=== PATIENT | male | born 1980 | race Caucasian/White ===

== ENCOUNTER 2017-06-21 00:25 | Inpatient (IN) | payer OTHER ==
[~2017-06-21] VITALS: Ht 172.7 cm; Wt 60.7 kg
[2017-06-21] VITALS (7 sets, daily range): BP systolic 123–135; BP diastolic 71–85; PULSE 86–108; TEMP 36.7–37.6; O2SAT 91–95; Ht 172.7 cm; Wt 60.7 kg
[~2017-06-21 00:25] MED LIST: AZITTAB PO; [UNRECOGNIZED DRUG - CODE] PO
[2017-06-21] MEDS ORDERED: ALBUT/IPRATROP 3MG/0.5MG NEB 3 ML VIAL INH STA ×2 (00:36→01:33)
[2017-06-21] MEDS ORDERED: SODIUM CHLORIDE 0.9% 1000ML 1,000 ML IV STA ×3 (00:36→04:15)
[2017-06-21] MEDS ORDERED: SODIUM CHLORIDE 0.9% 500ML 500 ML IV STA (00:36)
[2017-06-21] MEDS ORDERED: ALBUT/IPRATROP 3MG/0.5MG NEB 3 ML VIAL ONE (00:37)
[2017-06-21] MEDS ORDERED: DEXAMETHASONE SOD INJ 10 MG/ML VIAL IV ONE (00:45)
[2017-06-21 01:05] LABS: HEMATOCRIT 37.1 % (42-52); MEAN CELL VOLUME 86.5 fL (80-100); MEAN CORPUSCULAR HEMOGLOBIN 29.8 pg (25-34); MEAN CORPUSCULAR HGB CONC 34.5 g/dl (32-36); MEAN PLATELET VOLUME 8.7 fL (7.4-10.4); PLATELET COUNT 655 K/uL (130-400); RED BLOOD COUNT 4.29 M/uL (4.7-6.1); WHITE BLOOD COUNT 19.64 K/uL (4.8-10.8)
[2017-06-21] MEDS ORDERED: ONDANSETRON INJ 2 MG/ML 2 ML VIAL IV STA (01:33)
[2017-06-21 01:37] LABS: BASO ABS # 0.18 K/uL (0-0.2); BASOPHIL % 0.9 % (0-2); COMPLETE YES; EOSINOPHIL % 2.6 %; LYMPH ABS # 2.73 K/uL (1.2-3.4); LYMPHOCYTE % 13.9 %; META ABS # 0.18 K/uL (0-0); METAMYELOCYTE % 0.9 %; NEUTROPHILS % 75.6 %
[2017-06-21] MEDS ORDERED: OPTIRAY 320 IV PRN (01:45)
[2017-06-21] MEDS ORDERED: MoRPHine SULFATE 4 MG/ML 1 ML CARP\\VIAL IV STA (01:52)
[2017-06-21] MEDS ORDERED: CEFTRIAXONE SOD INJ 1 GM ADDVIAL IV STA (01:59)
[2017-06-21] MEDS ORDERED: FLUO20CA35 PO (02:06)
[2017-06-21 02:43] LABS: ALT/SGPT 164 U/L (12-78); AST/SGOT 128 U/L (15-37); BLOOD UREA NITROGEN 15 mg/dl (7-18); BUN/CREATININE RATIO 15.4 (10-20); CALCIUM 9.1 mg/dl (8.5-10.1); CARBON DIOXIDE 28 mmol/L (21-32); CHLORIDE 101 mmol/L (98-107); GLUCOSE 114 mg/dl (70-99); MAGNESIUM 2.2 mg/dl (1.8-2.4); POTASSIUM 3.8 mmol/L (3.5-5.1); SODIUM 135 mmol/L (136-145)
[2017-06-21 02:48] LABS: ALKALINE PHOSPHATASE 207 U/L (45-117)
[2017-06-21 02:58] LABS: LYME DISEASE AB IGG NEG (NEG); LYME DISEASE AB IGM NEG (NEG)
[2017-06-21 03:32] LABS: PARTIAL THROMBOPLASTIN RATIO 1.4; PROTHROMBIN TIME (PATIENT) 11.2 SECONDS (9.0-12.0)
[2017-06-21] MEDS ORDERED: KETOROLAC TROMETHAMINE 30 MG/ML VIAL IV STA (04:15)
[2017-06-21] MEDS ORDERED: CLINDAMYCIN IV 900 MG in DEXTROSE 5% 100ML 100 ML IV ONE (04:15)
[2017-06-21] MEDS ORDERED: AZITHROMYCIN 250 MG TAB PO STA (04:15)
[2017-06-21] MEDS ORDERED: MoRPHine SULFATE 2 MG/ML CARP IV PRN (04:30)
[2017-06-21] MEDS ORDERED: ONDANSETRON INJ 2 MG/ML 2 ML VIAL IV PRN (04:30)
[2017-06-21] MEDS ORDERED: ALUMINUM/MAGNESIUM/SIMETH (MAALOX MAX) 30 ML UDC PO PRN (04:30)
[2017-06-21] MEDS ORDERED: ZOLPIDEM TARTRATE 5 MG TAB PO PRN (04:30)
[2017-06-21] MEDS ORDERED: MAGNESIUM HYDROXIDE SUSP 30 ML UDC PO PRN (04:30)
[2017-06-21] MEDS ORDERED: POLYETHYLENE (MIRALAX) 17 GM PACK PO PRN (04:30)
[2017-06-21] MEDS ORDERED: ACETAMINOPHEN 325 MG TAB PO PRN (04:30)
--- NOTE | 2017-06-21 04:44 | History and Physical ---
History & Physical Date & Time of Service: Jun 21, 2017 at 04:37 Chief Complaint: Rib Pain-Happened At Work Primary Care Physician: Steve Hernandez M.D. History of Present Illness Source: patient 37 y/o M with history of depression and OCD only. The pt reports having a flu- like illness with cough and congestion as early as one week ago. He felt that he had returned to his normal state of health prior to returning to work today. At work he developed acute onset of pleuritic R sided CP in addition to progressive SOB and a productive cough. He could not confirm a fever. Denies N /V, diarrhea or dysuria. A CTA obtained in the ER revealed R upper and lower lobe consolidations with foci of cavitation - abscess could not be ruled out. Initial labs reveal leukocytosis and elevated LFTs. The pt travelled to [place] in February of 2017. 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 Smoking Status: Never Smoker Allergies Coded Allergies: No Known Allergies (Unverified , 06/25/08) Home Medications Scheduled Fluoxetine (Prozac), 20 MG PO DAILY Review of Systems Constitutional: No fever, No chills, No sweats Eyes: No worsening of vision ENT: No hearing loss, No unusual epistaxis, No nasal symptoms Respiratory: + cough, + sputum, + shortness of breath, + dyspnea on exertion, + dyspnea at rest Cardiovascular: + chest pain (Pleuritic - R sided) Abdomen: No pain, No nausea, No vomiting Musculoskeletal: No joint pain Genitourinary - Male: No hematuria, No dysuria Neurologic: No memory loss, No paralysis, No weakness Psychiatric: No depression symptoms Endocrine: No fatigue Hematologic / Lymphatic: No abnormal bleeding/bruising Integumentary: No rash Physical Exam Vital Signs Date Time Temp Pulse Resp B/P (MAP) Pulse Ox O2 Delivery O2 Flow Rate FiO2 06/21/17 04:01 91 22 138/96 93 Room Air 06/21/17 03:31 90 27 93 Room Air 06/21/17 03:00 85 21 127/75 95 Room Air 06/21/17 02:31 100 24 119/65 94 Room Air 06/21/17 02:01 100 27 95 Room Air 06/21/17 01:31 96 18 90 Room Air 06/21/17 01:30 97 24 135/72 91 Room Air 06/21/17 01:10 94 06/21/17 00:40 94 Room Air 06/21/17 00:40 94 Room Air 06/21/17 00:27 37.0 89 28 116/70 93 Room Air General Appearance: WD/WN, no apparent distress Head: normocephalic Eyes: normal inspection ENT: normal ENT inspection, hearing grossly normal, pharynx normal Neck: supple, no JVD Respiratory/Chest: + pertinent finding (Crackles present throughout R lung chou) Cardiovascular: regular rate, rhythm, no edema, no gallop Abdomen/GI: normal bowel sounds, non tender, soft Back: normal inspection, no CVA tenderness, no muscle spasm, normal range of motion Extremities/Musculoskelatal: normal inspection, no calf tenderness, normal capillary refill, no pedal edema, normal range of motion 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, no motor/sensory deficits, alert, normal mood/affect, normal reflexes, oriented x 3 Skin: normal color, warm/dry, no rash Diagnostics Laboratory Results Results Past 24 Hours Test 06/21/17 00:50 06/21/17 01:45 06/21/17 02:41 Range/Units White Blood Count 19.64 4.8-10.8 K/uL Red Blood Count 4.29 4.7-6.1 M/uL Hemoglobin 12.8 14.0-18.0 g/dL Hematocrit 37.1 42-52 % Mean Corpuscular Volume 86.5 80-100 fL Mean Corpuscular Hemoglobin 29.8 25-34 pg Mean Corpuscular Hemoglobin Concent 34.5 32-36 g/dl Platelet Count 655 130-400 K/uL Mean Platelet Volume 8.7 7.4-10.4 fL RDW Standard Deviation 42.4 36.4-46.3 fL RDW Coefficient of Variation 13.4 11.5-14.5 % Neutrophils % (Manual) 75.6 % Lymphocytes % (Manual) 13.9 % Monocytes % (Manual) 6.1 % Eosinophils % (Manual) 2.6 % Basophils % (Manual) 0.9 0-2 % Metamyelocytes % 0.9 % Neutrophils # (Manual) 14.85 1.4-6.5 K/uL Total Absolute Neutrophils 14.85 1.4-6.5 K/uL Lymphocytes # (Manual) 2.73 1.2-3.4 K/uL Total Absolute Lymphocytes 2.73 1.2-3.4 K/uL Monocytes # (Manual) 1.20 0.11-0.59 K/uL Eosinophils # (Manual) 0.51 0-0.5 K/uL Basophils # (Manual) 0.18 0-0.2 K/uL Metamyelocytes # 0.18 0-0 K/uL Red Blood Cell Morphology Unremarkable Prothrombin Time 11.2 9.0-12.0 SECONDS Prothromb Time International Ratio 1.0 0.9-1.1 Activated Partial Thromboplast Time 35.2 21.0-31.0 SECONDS Partial Thromboplastin Ratio 1.4 Sodium Level 135 136-145 mmol/L Potassium Level 3.8 3.5-5.1 mmol/L Chloride Level 101 98-107 mmol/L Carbon Dioxide Level 28 21-32 mmol/L Anion Gap 6.0 3-11 mmol/L Blood Urea Nitrogen 15 7-18 mg/dl Creatinine 1.00 0.60-1.40 mg/dl Est Creatinine Clear Calc Drug Dose 113.8 ml/min Estimated GFR () 110.2 Estimated GFR (Non- 95.1 BUN/Creatinine Ratio 15.4 10-20 Random Glucose 114 70-99 mg/dl Calcium Level 9.1 8.5-10.1 mg/dl Magnesium Level 2.2 1.8-2.4 mg/dl Total Bilirubin 0.5 0.2-1 mg/dl Direct Bilirubin 0.3 0-0.2 mg/dl Aspartate Amino Transf (AST/SGOT) 128 15-37 U/L Alanine Aminotransferase (ALT/SGPT) 164 12-78 U/L Alkaline Phosphatase 207 45-117 U/L Troponin I < 0.015 0-0.045 ng/ml Total Protein 8.0 6.4-8.2 gm/dl Albumin 2.8 3.4-5.0 gm/dl Lipase 84 73-393 U/L Lyme Disease IgG Antibody NEG NEG Lyme Disease IgM Antibody NEG NEG Hepatitis B Surface Antigen NEG NEG Hepatitis C Antibody NEG NEG Bedside Lactic Acid Venous 0.55 0.90-1.70 mmol/L Microbiology Results 06/21/17 Blood Culture, Received Pending 06/21/17 Blood Culture, Received Pending Diagnostic Radiology CTA: R upper and lower lobe consolidation with foci of cavitation - possibly abscess - multiple enlarged mediastinal LNs Impression Assessment and Plan 37 y/o M with history of depression and OCD only. The pt reports having a flu- like illness with cough and congestion as early as one week ago. He felt that he had returned to his normal state of health prior to returning to work today. At work he developed acute onset of pleuritic R sided CP in addition to progressive SOB and a productive cough. He could not confirm a fever. Denies N /V, diarrhea or dysuria. A CTA obtained in the ER revealed R upper and lower lobe consolidations with foci of cavitation - abscess could not be ruled out. Initial labs reveal leukocytosis and elevated LFTs. 1) Pneumonia with cavitations and possibly abscess. Differential is broad - he admits to excessive alcohol intake and occasionally passing out at home after drinking. He may then be prone to aspiration and anaerobic infection or Klebsiella. 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 The pt was sick one week earlier with a flu-like illness and reported improvement before becoming acutely ill at work today. A post-viral pneumonia should be considered. Lastly, LFTs are elevated and the ratio does not suggest that this is alcohol- related. Legionella is a possibility although this would normally appear as a b /l pneumonia. The pt received Ceftriaxone and Zithro in the ER - we will change this to Clindamycin and consult ID and Pulmonary. Sputum culture, AFB, blood culture, Legionella urine, rapid flu are all currently pending. He will be placed in negative pressure isolation. 2) Depression/anxiety, OCD - pt will continue fluoxetine. 3) Excessive alcohol intake - he has minimized intake over the past 2 weeks and has not had any alcohol for a few days. Withdrawal is unlikely. Positive reinforcement was provided. 4) LFTs abnormal - no current related symptoms - may be due to acute infection - will trend LFs - hep panel - may need dedicated imaging if there is an upward trend. Full code, Heparin prophylaxis Total time for this admit including review of labs, meds, EKG, imaging - discussion with pt and ER attending - 45 min Level of Care Telemetry Resuscitation Status FULL RESUSCITATION VTE Prophylaxis VTE Risk Assessment Done? Y/N: Yes Risk Level: Very Low Given or contraindicated: Unfractionated heparin SQ
[2017-06-21 05:11] LABS: URINE APPEARANCE CLEAR (CLEAR); URINE BILIRUBIN NEG (NEG); URINE COLOR YELLOW; URINE NITRITE NEG (NEG); URINE PH 6.5 (4.5-7.5); URINE SPECIFIC GRAVITY 1.027 (1.000-1.030); UROBILINOGEN NEG (NEG); ZZUR CULT IF INDIC CLEAN CATCH NO
[2017-06-21 05:24] LABS: MANUAL MICROSCOPIC REQUIRED? NO; REVIEW REQ? NO
--- NOTE | 2017-06-21 05:25 | EMERGENCY ROOM VISIT NOTE ---
History First contact with patient: 00:31 Chief Complaint: RIB PAIN Stated Complaint: RIB PAIN-HAPPENED AT WORK History of Present Illness The patient is a 37 year old male who presents to the Emergency Room with complaints of cough, congestion with objective fever and chills for the past few weeks. Patient states tonight at work symptoms got worse and developed right-sided chest pain. No injury to the area. Pain currently 5 out of 10 worse with coughing and better with rest. Patient denies abdominal pain, diaphoresis, nausea, vomiting, diarrhea, back pain, leg pain or swelling, recent travel within the past 3 months. No family history of heart disease or blood clots. Patient has had bronchitis before. Patient also states he was bitten by a tick a few months ago and is concerned he has Lyme's disease. He has been fatigued. Review of Systems See HPI for pertinent positives & negatives. A total of 10 systems reviewed and were otherwise negative. Past Medical/Surgical History Medical Problems: (1) Lung abscess (2) Multifocal pneumonia Anxiety, OCD Social History Smoking Status: Never Smoker Smokeless Tobacco Use: No Alcohol Use: occasionally Drug Use: none Occupation Status: employed Current/Historical Medications Scheduled Fluoxetine (Prozac), 20 MG PO DAILY Physical Exam Vital Signs Date Time Temp Pulse Resp B/P (MAP) Pulse Ox O2 Delivery O2 Flow Rate FiO2 06/21/17 05:12 99 06/21/17 04:01 91 22 138/96 93 Room Air 06/21/17 03:31 90 27 93 Room Air 06/21/17 03:00 85 21 127/75 95 Room Air 06/21/17 02:31 100 24 119/65 94 Room Air 06/21/17 02:01 100 27 95 Room Air 06/21/17 01:31 96 18 90 Room Air 06/21/17 01:30 97 24 135/72 91 Room Air 06/21/17 01:10 94 06/21/17 00:40 94 Room Air 06/21/17 00:40 94 Room Air 06/21/17 00:27 37.0 89 28 116/70 93 Room Air Physical Exam VITALS: Vitals are noted on the nurse's note and reviewed by myself. Vital signs stable. GENERAL: Pleasant male unable to speak in full sentences SKIN: The skin was without rashes, erythema, edema, or bruising. There is no tenting of the skin. Capillary reflex less than 2 seconds. HEAD: Normocephalic atraumatic. EARS: External auditory canals clear, tympanic membranes pearly casiano without erythema or effusion bilaterally. EYES: Pupils equal round and reactive to light and accommodation. Conjunctivae without injection, sclerae without icterus. Extraocular movements intact. NOSE: Patent, turbinates without inflammation or discharge. No sinus tenderness. MOUTH: Mucous membranes moist. Pharynx without erythema or exudate. Uvula midline. Airway patent. Tongue does not deviate. NECK: Supple without nuchal rigidity. No lymphadenopathy. No thyromegaly. Cervical spine is nontender. No JVD. HEART: Regular rate and rhythm without murmurs gallops or rubs. LUNGS: Mild diffuse and expiratory wheezes, diminished breath sounds in the bases no dullness to percussion. No retractions or accessory muscle use. ABDOMEN: Positive bowel sounds x 4. Normal tympanic percussion. Soft, nontender, without masses or organomegaly. Bennett sign negative. No guarding or rebound tenderness. No CVA tenderness MUSCULOSKELETAL: No muscle atrophy, erythema, or edema noted. NEURO: Patient was alert and oriented to person place and time. Normal sensation to light and sharp touch. No focal neurological deficits. Medical Decision & Procedures Laboratory Results 06/21/17 00:50 Red Blood Count 4.29, Mean Corpuscular Volume 86.5, Mean Corpuscular Hemoglobin 29.8, Mean Corpuscular Hemoglobin Concent 34.5, Mean Platelet Volume 8.7 06/21/17 01:45 Test 06/21/17 00:50 06/21/17 01:45 06/21/17 02:41 06/21/17 04:54 White Blood Count 19.64 K/uL (4.8-10.8) Red Blood Count 4.29 M/uL (4.7-6.1) Hemoglobin 12.8 g/dL (14.0-18.0) Hematocrit 37.1 % (42-52) Mean Corpuscular Volume 86.5 fL (80-100) Mean Corpuscular Hemoglobin 29.8 pg (25-34) Mean Corpuscular Hemoglobin Concent 34.5 g/dl (32-36) Platelet Count 655 K/uL (130-400) Mean Platelet Volume 8.7 fL (7.4-10.4) RDW Standard Deviation 42.4 fL (36.4-46.3) RDW Coefficient of Variation 13.4 % (11.5-14.5) Neutrophils % (Manual) 75.6 % Lymphocytes % (Manual) 13.9 % Monocytes % (Manual) 6.1 % Eosinophils % (Manual) 2.6 % Basophils % (Manual) 0.9 % (0-2) Metamyelocytes % 0.9 % Neutrophils # (Manual) 14.85 K/uL (1.4-6.5) Total Absolute Neutrophils 14.85 K/uL (1.4-6.5) Lymphocytes # (Manual) 2.73 K/uL (1.2-3.4) Total Absolute Lymphocytes 2.73 K/uL (1.2-3.4) Monocytes # (Manual) 1.20 K/uL (0.11-0.59) Eosinophils # (Manual) 0.51 K/uL (0-0.5) Basophils # (Manual) 0.18 K/uL (0-0.2) Metamyelocytes # 0.18 K/uL (0-0) Red Blood Cell Morphology Unremarkable Prothrombin Time 11.2 SECONDS (9.0-12.0) Prothromb Time International Ratio 1.0 (0.9-1.1) Activated Partial Thromboplast Time 35.2 SECONDS (21.0-31.0) Partial Thromboplastin Ratio 1.4 Anion Gap 6.0 mmol/L (3-11) Est Creatinine Clear Calc Drug Dose 113.8 ml/min Estimated GFR () 110.2 Estimated GFR (Non- 95.1 BUN/Creatinine Ratio 15.4 (10-20) Calcium Level 9.1 mg/dl (8.5-10.1) Magnesium Level 2.2 mg/dl (1.8-2.4) Total Bilirubin 0.5 mg/dl (0.2-1) Direct Bilirubin 0.3 mg/dl (0-0.2) Aspartate Amino Transf (AST/SGOT) 128 U/L (15-37) Alanine Aminotransferase (ALT/SGPT) 164 U/L (12-78) Alkaline Phosphatase 207 U/L (45-117) Troponin I < 0.015 ng/ml (0-0.045) Total Protein 8.0 gm/dl (6.4-8.2) Albumin 2.8 gm/dl (3.4-5.0) Lipase 84 U/L (73-393) Lyme Disease IgG Antibody NEG (NEG) Lyme Disease IgM Antibody NEG (NEG) Hepatitis B Surface Antigen NEG (NEG) Hepatitis C Antibody NEG (NEG) Bedside Lactic Acid Venous 0.55 mmol/L (0.90-1.70) Test 06/21/17 05:15 Medications Administered Medications (Trade) Dose Ordered Sig/Lanny Route Start Time Stop Time Status Last Admin Dose Admin Albuterol/ Ipratropium (Duoneb) 3 ml NOW STAT INH 06/21/17 00:36 06/21/17 00:38 DC 06/21/17 00:40 3 ML Dexamethasone Sodium Phosphate (Decadron Inj) 10 mg NOW ONCE IV 06/21/17 00:45 06/21/17 00:46 DC 06/21/17 00:59 10 MG Sodium Chloride 500 ml @ 999 mls/hr Q31M STAT IV 06/21/17 00:36 06/21/17 01:06 DC 06/21/17 00:36 999 MLS/HR Sodium Chloride 1,000 ml @ 125 mls/hr Q8H STAT IV 06/21/17 00:36 06/21/17 08:35 06/21/17 01:01 125 MLS/HR Albuterol/ Ipratropium (Duoneb) 3 ml NOW STAT INH 06/21/17 01:33 06/21/17 01:34 DC 06/21/17 01:33 3 ML Ondansetron HCl (Zofran Inj) 4 mg NOW STAT IV 06/21/17 01:33 06/21/17 01:34 DC 06/21/17 01:43 4 MG Morphine Sulfate (MoRPHine SULFATE INJ) 4 mg NOW STAT IV 06/21/17 01:52 06/21/17 01:53 DC 06/21/17 01:57 4 MG Ceftriaxone Sodium (Rocephin Inj) 1 gm NOW STAT IV 06/21/17 01:59 06/21/17 02:00 DC 06/21/17 02:35 1 GM ED Course Prior records/ancillary studies reviewed. Triage Nursing notes reviewed. The patient's history was concerning for breathing problems with chest pain. Differential diagnosis: Etiologies such as bronchitis, reactive airway, cardiac ischemia, aortic dissection, pulmonary embolism, pneumonia, pneumothorax, musculoskeletal, infections, pericarditis, myocarditis, esophageal rupture, gastrointestinal, as well as others were entertained. Physical examination: As above. ER treatment provided: Nebulizer, steroids On reassessment the patient felt better. Diagnostic interpretation by me: The electrocardiogram was negative for pathologic change. Normal sinus, normal intervals, no acute ST-T wave changes. Impression normal sinus rhythm interpreted by myself The labs revealed leukocytosis, elevated LFTs. Negative hepatitis panel. Legionnaire's pending. Acid-fast pending. Sputum culture pending. Blood cultures pending. neg Lactic Acid Imaging studies: Chest x-ray poor inspiration, concerns of possible right lower lobe pneumonia per my interpretation CTA concerning for right upper and lower lobes consolidations with foci of cavitation - abscess could not be ruled out. Consultation: A consultation was placed with the hospitalist, Dr. Alvarado. The case was discussed and diagnostics were reviewed. The patient was evaluated in the ER for further treatment. Exam and history seem consistent with ammonia with concerns of possible legionnaires, Klebsiella or tuberculosis. Immediately after reviewing the CT I I informed my nursing direct care supervisor Kate, and notified the hospital direct care supervisor with my possible concerns. Precautions were taken for possible TB and other infectious diseases. Patient denies any risk factors for TB. No hemoptysis. He did state after the fact when he got results that he has been drinking heavily. Patient went to [place] in February. No other travels. No travel to third will country's. No IV drug abuse. Patient was placed in isolation. He was medicated as above. He will be evaluated by medicine for admission. Patient felt much better after being medicated as above. Normal EKG. Negative troponin. He was well-appearing.By the evaluation outlined above emergent etiologies such as cardiac ischemia, aortic dissection, pulmonary embolism, pneumothorax, pericarditis, myocarditis, gastrointestinal, as well as others were deemed relatively unlikely. The pt informed about the findings as listed above. All questions were answered and pleased with the treatment. Case reviewed by attending Medical Decision as above Medication Reconcilliation Current Medication List: was personally reviewed by me Blood Pressure Screening Patient's blood pressure: Normal blood pressure Impression Primary Impression: Multifocal pneumonia Additional Impression: Anemia Departure Information Referrals No Doctor, Assigned (PCP) Patient Instructions My [facility] Problem Qualifiers
--- NOTE | 2017-06-21 06:02 | DIAGNOSTIC IMAGING REPORT ---
CHEST ONE VIEW PORTABLE CLINICAL HISTORY: 37 years-old Male presenting with CHEST PAIN, posterior right rib pain. TECHNIQUE: Portable semiupright AP view of the chest was obtained. COMPARISON: None. FINDINGS: Cardiomediastinal silhouette normal. Low lung volumes with hypoventilatory changes. Osseous structures normal. Upper abdomen normal. IMPRESSION: 1. Low lung volumes with hypoventilatory changes. 2. If there is clinical concern for a right rib fracture, dedicated radiographs are suggested due to limited image quality on the portable radiograph of the chest. Electronically signed by: Morgan Morocho M.D. 06/21/2017 6:00 AM Dictated Date/Time: 06/21/2017 5:59 AM
--- NOTE | 2017-06-21 06:40 | DIAGNOSTIC IMAGING REPORT ---
(CHEST FOR PE) ANGIO WITH CT DOSE: 770.81 mGy.cm HISTORY: 37 years-old Male presents with acute chest pain and shortness of breath. Initial exam. TECHNIQUE: Multiple CTA images of the chest were obtained after the intravenous administration of 95 ml Optiray 320. Coronal and sagittal MIPS were obtained from the axial data set and were submitted for review. A dose lowering technique was utilized adhering to the principles of ALARA. COMPARISON: Chest radiograph of same day. FINDINGS: CTA: Heart is normal in size. Bovine aortic arch is noted with image great vessels patent. No aortic dissection or aneurysm. The pulmonary arterial tree is well opacified to the level of the proximal subsegmental branches. Evaluation is mildly limited secondary to respiratory motion. No pulmonary emboli identified. CT CHEST: No dominant thyroid nodule identified. Mildly enlarged right hilar lymph nodes are seen measuring up to 1.1 cm in short axis. Subcarinal lymph nodes are seen measuring up to 1.1 cm in short axis. Enlarged paratracheal lymph nodes are seen with right paratracheal lymph node measuring up to 1.5 cm in transverse dimension. There is a small right pleural effusion. No pneumothorax is identified. Dependent groundglass opacities of the left lung suggests atelectasis. There are multifocal groundglass and consolidative opacities throughout the right lung involving the right upper and lower lobes. Centrally cavitary opacity of the superior segment right lower lobe is seen, 3.4 x 5.8 cm with connecting or separate centrally cavitary seen just inferiorly, also within the superior segment right lower lobe, 4.3 x 5.4 cm. Together these two cavitations measure up to 7.9 cm in craniocaudal dimension. Bronchial wall thickening is noted within the right upper and lower lobes with bronchovascular distribution nodular and consolidative opacities. Imaged upper abdominal structures are within normal limits. The bones appear intact. IMPRESSION: 1. Multifocal alveolar consolidations within the right upper and lower lobes are present with small right pleural effusion and associated moderate bronchial wall thickening suggesting infectious bronchopneumonia. Additionally, there are two large possibly connecting centrally cavitary consolidations involving the superior segment right lower lobe measuring up to 5.8 cm. Primary differential consideration would be cavitary pneumonia with probable abscess development. Additional differential considerations would include tuberculosis or granulomatosis with polyangiitis among other etiologies. Close follow-up is needed. 2. Mediastinal and hilar adenopathy is likely reactive. 3. No acute aortic pathology or evidence of pulmonary thromboembolic disease. The above report was generated using voice recognition software. It may contain grammatical, syntax or spelling errors. Electronically signed by: Mor Chavarria M.D. 06/21/2017 6:39 AM Dictated Date/Time: 06/21/2017 6:23 AM
[2017-06-21 08:54] LABS: INFLUENZA A PCR Neg for Influ A (NEG); INFLUENZA B PCR Neg for Influ B (NEG)
[2017-06-21] MEDS: FLUOXETINE HCL 20 MG CAP PO SCH (08:55)
[2017-06-21] MEDS: HEPARIN SOD 5000 UNIT/0.5 ML CARP SQ SCH ×2 (08:57→16:00)
--- NOTE | 2017-06-21 10:48 | Pulmonary Consultation ---
History General Date of Service: Jun 21, 2017. Stated Complaint: Lung Abscess, Multifocal Pneumonia HPI The patient is a 37 year old male who presents to [facility] with complaints of Lung Abscess, Multifocal Pneumonia. The patient's primary care provider is Steve Hernandez M.D.. Mr. Warner is a 37 year old male who presents with acute right sided pleurtic chest pain that started a few hours prior to coming to ER visit. He complains of sharp right sided chest pain associated with deep inspiration. It is not reproducible. He states that over the last several weeks he felt like he had a "flu-like" illness, that was associated with subjective fever, chills, nasal congestion and cough. He states that he has had sweats since childhood during periods of anxiety, this often on forehead and chest. He denies hemoptysis, weight loss, change in appetite. He denies any decreased exercise tolerance or dyspnea on exertion prior to this event. He denies any sick contacts on any known exposures to anyone with tuberculosis. He has never been incarcerated or been in the . He he recently traveled to [place] in February 2017. He uses cocaine, intranasally on occasion. He also states that he had been drink heavily up until one month ago till the point of "passing out." He denies any other drug exposure. Last use was about one month. Denies any IVDA. He has history of GERD, denies any any sinusitis. He has had joint pains of knees and ankles over the last week. He denies any family history of any rheumatological disorders or malignancy. He denies any trauma to the area. He denies any prior episodes of lung infections. VS upon arrival to ER were Temperature 37, P 89, RR 28, BP 116/70, P 93, 93% on room air. Laboratory data significant for WBC 19, Hgb 12.8, Plt 655, with N 75% and L 13.9%. Sodium 135, BUN 15, Cr 1.0, DB 0.3, AST 128, P164, AP 207, Trop < 0.015, TP 8.0, Albumin 2.8. CXR showed low lung volumes with hypoventilatory changes. CT chest showed right upper and lower lobe opacification with a large 5.8 cm mass with cavitation. There is also a small pleural effusion noted. In the ED, he received DuoNeb inhaler x2, Dexamethasone 10 mg x1 IV, NaCl bolus , morphine, ceftriaxone and azithromycin. Blood cultures, sputum cultures, AFB sputum cultures, legionella Ag sent. He was admitted for pneumonia. Historian: patient Onset: just prior to arrival Severity: moderate Complaint Status: persistent Quality of Pain: aching, sharp Method of Injury: unknown Modifying Factors: immobilization Review of Systems Constitutional: reports: chills, fever Eyes: reports: as stated in HPI ENT: reports: as stated in HPI Cardiovascular: reports: as stated in HPI Respiratory: reports: as stated in HPI Gastrointestinal: reports: as stated in HPI Genitourinary - Male: reports: as stated in HPI Musculoskeletal: reports: as stated in HPI Integumentary: reports: as stated in HPI Neurologic: reports: as stated in HPI Psychiatric: reports: as stated in HPI Endocrine: as stated in HPI Hematologic / Lymphatic: as stated in HPI Allergic / Immunologic: as stated in HPI All Other Symptoms All Other Systems: Reviewed and Negative Past Medical History Past Medical History: Anxiety OCD Past Surgical History: no surgical history Family History Denies any family history Social History 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 He denies any tobacco use, marijuana use. He is an occasional cocaine user--last use was about one month ago He states that he was a heavy beer drinker of about 12 beers a day. He states that he has not been drinking, for the last month. He is currently not sexually active. Last sexual encounter was about 1 year ago. He is heterosexual. He lives with a roommate. Hx Tobacco Use In Past Year?: No Smoking Status: Never Smoker Alcohol: history of alcohol abuse Drug Use: cocaine Marital status: single Housing status: lives with roommate Occupational Status: employed Allergies Coded Allergies: No Known Allergies (Unverified , 06/25/08) Current Medications Reported Home Medications Medications Dose Route/Sig Max Daily Dose Days Date Category Prozac (Fluoxetine HCl) 20 Mg Cap 20 Mg PO DAILY 06/21/17 Reported Physical Physical Exam Vital Signs: Date Time Temp Pulse Resp B/P (MAP) Pulse Ox O2 Delivery O2 Flow Rate FiO2 06/21/17 09:21 36.8 91 22 135/85 95 Room Air 06/21/17 08:20 83 20 138/68 96 06/21/17 06:36 93 06/21/17 06:21 93 25 89 06/21/17 06:17 140/80 06/21/17 06:06 85 26 94 06/21/17 05:51 86 23 92 06/21/17 05:50 36.6 83 23 110/89 92 Room Air 06/21/17 05:49 110/89 06/21/17 05:36 80 26 94 06/21/17 05:21 84 21 91 06/21/17 05:12 99 06/21/17 05:06 89 14 94 06/21/17 04:51 86 16 91 06/21/17 04:49 129/101 06/21/17 04:21 92 22 94 06/21/17 04:06 100 29 94 06/21/17 04:01 91 22 138/96 93 Room Air 06/21/17 03:31 90 27 93 Room Air 06/21/17 03:00 85 21 127/75 95 Room Air 06/21/17 02:31 100 24 119/65 94 Room Air 06/21/17 02:01 100 27 95 Room Air 06/21/17 01:31 96 18 90 Room Air 06/21/17 01:30 97 24 135/72 91 Room Air 06/21/17 01:10 94 06/21/17 00:40 94 Room Air 06/21/17 00:40 94 Room Air 06/21/17 00:27 37.0 89 28 116/70 93 Room Air General Appearance: WD/WN, NO APPARENT DISTRESS, obese, other (Sweating profusely) Head: NORMOCEPHALIC, ATRAUMATIC Eyes: PERRLA, NO DISCHARGE, EOMI, SCLERAE NORMAL, CONJUNCTIVAE NORMAL ENT: NORMAL MOUTH EXAM, other (malampatti IV) Neck: NO TENDERNESS, TRACHEA MIDLINE, NO STRIDOR, SUPPLE, other (short thick neck) Respiratory: BREATH SOUNDS NORMAL, CLEAR TO AUSCULTATION Cardiovasular: REGULAR RATE/RHYTHM, NORMAL S1S2, NORMAL PERIPHERAL PULSES Abdomen: NON TENDER, NORMAL BOWEL SOUNDS Genitourinary - Male: EXTERNAL GENITALIA NORMAL Back: NORMAL INSPECTION Upper Extremities: NO EDEMA Lower Extremities: NO EDEMA Pulses: dorsalis pedis (R) (2+), dorsalis pedis (L) (2+) Neuro: ALERT, ORIENTED x 3, NORMAL MOTOR EXAM, NORMAL SENSATION, NORMAL CEREBELLAR EXAM, NORMAL SPEECH, NORMAL GAIT, NORMAL MEMORY Diagnostics Labs Results Past 24 Hours Test 06/21/17 00:50 06/21/17 01:45 06/21/17 02:41 06/21/17 04:54 Range/Units White Blood Count 19.64 4.8-10.8 K/uL Red Blood Count 4.29 4.7-6.1 M/uL Hemoglobin 12.8 14.0-18.0 g/dL Hematocrit 37.1 42-52 % Mean Corpuscular Volume 86.5 80-100 fL Mean Corpuscular Hemoglobin 29.8 25-34 pg Mean Corpuscular Hemoglobin Concent 34.5 32-36 g/dl Platelet Count 655 130-400 K/uL Mean Platelet Volume 8.7 7.4-10.4 fL RDW Standard Deviation 42.4 36.4-46.3 fL RDW Coefficient of Variation 13.4 11.5-14.5 % Neutrophils % (Manual) 75.6 % Lymphocytes % (Manual) 13.9 % Monocytes % (Manual) 6.1 % Eosinophils % (Manual) 2.6 % Basophils % (Manual) 0.9 0-2 % Metamyelocytes % 0.9 % Neutrophils # (Manual) 14.85 1.4-6.5 K/uL Total Absolute Neutrophils 14.85 1.4-6.5 K/uL Lymphocytes # (Manual) 2.73 1.2-3.4 K/uL Total Absolute Lymphocytes 2.73 1.2-3.4 K/uL Monocytes # (Manual) 1.20 0.11-0.59 K/uL Eosinophils # (Manual) 0.51 0-0.5 K/uL Basophils # (Manual) 0.18 0-0.2 K/uL Metamyelocytes # 0.18 0-0 K/uL Red Blood Cell Morphology Unremarkable Prothrombin Time 11.2 9.0-12.0 SECONDS Prothromb Time International Ratio 1.0 0.9-1.1 Activated Partial Thromboplast Time 35.2 21.0-31.0 SECONDS Partial Thromboplastin Ratio 1.4 Sodium Level 135 136-145 mmol/L Potassium Level 3.8 3.5-5.1 mmol/L Chloride Level 101 98-107 mmol/L Carbon Dioxide Level 28 21-32 mmol/L Anion Gap 6.0 3-11 mmol/L Blood Urea Nitrogen 15 7-18 mg/dl Creatinine 1.00 0.60-1.40 mg/dl Est Creatinine Clear Calc Drug Dose 113.8 ml/min Estimated GFR () 110.2 Estimated GFR (Non- 95.1 BUN/Creatinine Ratio 15.4 10-20 Random Glucose 114 70-99 mg/dl Calcium Level 9.1 8.5-10.1 mg/dl Magnesium Level 2.2 1.8-2.4 mg/dl Total Bilirubin 0.5 0.2-1 mg/dl Direct Bilirubin 0.3 0-0.2 mg/dl Aspartate Amino Transf (AST/SGOT) 128 15-37 U/L Alanine Aminotransferase (ALT/SGPT) 164 12-78 U/L Alkaline Phosphatase 207 45-117 U/L Troponin I < 0.015 0-0.045 ng/ml Total Protein 8.0 6.4-8.2 gm/dl Albumin 2.8 3.4-5.0 gm/dl Lipase 84 73-393 U/L Lyme Disease IgG Antibody NEG NEG Lyme Disease IgM Antibody NEG NEG Hepatitis B Surface Antigen NEG NEG Hepatitis C Antibody NEG NEG Bedside Lactic Acid Venous 0.55 0.90-1.70 mmol/L Urine Color YELLOW Urine Appearance CLEAR CLEAR Urine pH 6.5 4.5-7.5 Urine Specific [place] 1.027 1.000-1.030 Urine Protein NEG NEG Urine Glucose (UA) NEG NEG Urine Ketones NEG NEG Urine Occult Blood NEG NEG Urine Nitrite NEG NEG Urine Bilirubin NEG NEG Urine Urobilinogen NEG NEG Urine Leukocyte Esterase NEG NEG Test 06/21/17 05:15 06/21/17 06:20 Range/Units Influenza Type A (RT-PCR) Neg for Influ A NEG Influenza Type A Antigen Neg for Influ A NEG Influenza Type B Antigen Neg for Influ B NEG Influenza Type B (RT-PCR) Neg for Influ B NEG Microbiology Results 06/21/17 Blood Culture, Received Pending 06/21/17 Blood Culture, Received Pending 06/21/17 Acid Fast Stain, Received Pending 06/21/17 Mycobacterial Culture, Received Pending 06/21/17 Gram Stain - Final, Resulted 06/21/17 Sputum Culture, Resulted Pending Diagnostic Radiology CT chest 06/21/2017 IMPRESSION: 1. Multifocal alveolar consolidations within the right upper and lower lobes are present with small right pleural effusion and associated moderate bronchial wall thickening suggesting infectious bronchopneumonia. Additionally, there are two large possibly connecting centrally cavitary consolidations involving the superior segment right lower lobe measuring up to 5.8 cm. Primary differential consideration would be cavitary pneumonia with probable abscess development. Additional differential considerations would include tuberculosis or granulomatosis with polyangiitis among other etiologies. Close follow-up is needed. 2. Mediastinal and hilar adenopathy is likely reactive. 3. No acute aortic pathology or evidence of pulmonary thromboembolic disease. EKG Normal sinus rhythm at 78 bpm Impression Assessment and Plan Pneumonia with cavitations Pleurisy Transaminitis From patient history this is most likely a necrotizing pneumonia, however other etiologies should be ruled out, such has fungal and mycobaterium etiologies (ie TB). He has history of heavy alcohol use recently, which puts aspiration high on the differential. He denies any withdrawal symptoms or seizures. He also has history of cocaine use. Autoimmune diseases like Manjeet's granulomatosis or RA should be considered and ruled out. He denies any sinusitis. Also malignancy, such bronchogenic CA is possibility, but less likely. Continue with airborne precautions Send sputum cx and AFB sputum x3 to rule out pulmonary TB. Use 3% NS for sputum induction if needed. He should have blood cx and MO to rule out septic emboli Send HIV, serum or urine drug screen. Send ANCA, RA, ESR, CRP. Will also seen cryptococcal and cocci/blastomycosis Ab Continue with broad spectrum antibiotics to cover for MRSA and anaerobes. He is currently on clindamycin. Provide adequate pain control and incentive spirometry If work up is negative, a bronchoscopy with BAL and biopsy is warranted Supplement oxygen if needed to maintain SaO2 >92%. I appreciate the consult
[2017-06-21 11:52] LABS: RHEUMATOID FACTOR < 10.0 U/mL (0-15)
[2017-06-21 12:30] LABS: BENZODIAZEPINE, URINE NEG (NEG); COCAINE,URINE NEG (NEG); PHENCYCLIDINE, URINE NEG (NEG)
[2017-06-21] MEDS ORDERED: CLINDAMYCIN IV 600 MG in DEXTROSE 5% 50ML 50 ML IV SCH (14:00)
[2017-06-21] MEDS: ALBUT/IPRATROP 3MG/0.5MG NEB 3 ML VIAL INH PRN (15:06)
[2017-06-21] MEDS ORDERED: NURSING VERBAL MED ORDER ONE (16:15)
[2017-06-21] MEDS: KETOROLAC TROMETHAMINE 30 MG/ML VIAL IV. PRN ×2 (16:16→22:27)
--- NOTE | 2017-06-21 18:18 | Family Medicine Progress Note ---
Progress Note Date of Service Jun 21, 2017. Subjective Pt evaluation today including: conversation w/ patient, physical exam, chart review, conversation w/ senior analytic consultant, review of inpatient medication list Pain: moderate Voiding: no voiding problems Patient seen at the bedside. Was admitted overnight for pneumonia Continues to have right sided pleuritic chest pain with deep inspiration Has a cough with yellow sputum Denies any shortness of breath, fevers or chills Constitutional: + fatigue, No fever, No chills, No sweats Respiratory: + cough, + sputum, No wheezing, No shortness of breath Cardiovascular: + chest pain, No edema, No palpitations Abdomen: No pain, No nausea, No vomiting, No diarrhea, No constipation Musculoskeletal: + muscle pain, No joint pain Medications Current Inpatient Medications Medications (Trade) Dose Ordered Sig/Lanny Route Start Time Stop Time Status Last Admin Dose Admin Ioversol (Optiray 320) 125 ml UD PRN IV 06/21/17 01:45 06/25/17 01:44 Albuterol/ Ipratropium (Duoneb) 3 ml Q6H PRN INH 06/21/17 04:30 07/21/17 04:29 06/21/17 15:06 3 ML Fluoxetine HCl (Prozac Cap) 20 mg DAILY PO 06/21/17 09:00 07/21/17 08:59 06/21/17 08:55 20 MG Heparin Sodium (Porcine) (Heparin Sq 5000 Unit/0.5ml) 5,000 unit Q8H SQ 06/21/17 08:00 07/21/17 07:59 06/21/17 08:57 5,000 UNIT Acetaminophen (Tylenol Tab) 650 mg Q4H PRN PO 06/21/17 04:30 07/21/17 04:29 Al Hydrox/Mg Hydrox/Simethicone (Maalox Max Susp) 15 ml Q4H PRN PO 06/21/17 04:30 07/21/17 04:29 Magnesium Hydroxide (Milk Of Magnesia Susp) 30 ml Q12H PRN PO 06/21/17 04:30 07/21/17 04:29 Zolpidem Tartrate (Ambien Tab) 5 mg HSZ PRN PO 06/21/17 04:30 07/21/17 04:29 Ondansetron HCl (Zofran Inj) 4 mg Q6H PRN IV 06/21/17 04:30 07/21/17 04:29 Morphine Sulfate (MoRPHine SULFATE INJ) 2 mg Q30M PRN IV 06/21/17 04:30 07/05/17 04:29 06/21/17 12:07 2 MG Polyethylene (Miralax Powder Packet) 17 gm DAILY PRN PO 06/21/17 04:30 07/21/17 04:29 Ketorolac Tromethamine (Toradol Inj) 30 mg Q6H PRN IV. 06/21/17 16:15 06/26/17 16:14 06/21/17 16:16 30 MG Azithromycin 500 mg/Dextrose 255 ml @ 170 mls/hr DAILY STAT IV 06/21/17 17:57 06/21/17 19:26 UNV Piperacillin Sod/ Tazobactam Sod 4.5 gm/Dextrose 120 ml @ 200 mls/hr Q6H STAT IV 06/21/17 17:57 06/21/17 18:32 UNV Vancomycin HCl 1000 mg/Sodium Chloride 270 ml @ 125 mls/hr Q12 IV 06/21/17 21:00 06/28/17 20:59 UNV Objective Vital Signs Date Time Temp Pulse Resp B/P (MAP) Pulse Ox O2 Delivery O2 Flow Rate FiO2 06/21/17 16:17 37.6 108 22 128/71 (90) 06/21/17 16:00 92 Room Air 06/21/17 15:06 102 16 92 Room Air 06/21/17 12:00 92 Room Air 06/21/17 11:54 36.7 86 20 123/80 (94) 92 Room Air 06/21/17 09:21 36.8 91 22 135/85 95 Room Air 06/21/17 08:20 83 20 138/68 96 06/21/17 06:36 93 06/21/17 06:21 93 25 89 06/21/17 06:17 140/80 06/21/17 06:06 85 26 94 06/21/17 05:51 86 23 92 06/21/17 05:50 36.6 83 23 110/89 92 Room Air 06/21/17 05:49 110/89 06/21/17 05:36 80 26 94 06/21/17 05:21 84 21 91 06/21/17 05:12 99 06/21/17 05:06 89 14 94 06/21/17 04:51 86 16 91 06/21/17 04:49 129/101 06/21/17 04:21 92 22 94 06/21/17 04:06 100 29 94 06/21/17 04:01 91 22 138/96 93 Room Air 06/21/17 03:31 90 27 93 Room Air 06/21/17 03:00 85 21 127/75 95 Room Air 06/21/17 02:31 100 24 119/65 94 Room Air 06/21/17 02:01 100 27 95 Room Air 06/21/17 01:31 96 18 90 Room Air 06/21/17 01:30 97 24 135/72 91 Room Air 06/21/17 01:10 94 06/21/17 00:40 94 Room Air 06/21/17 00:40 94 Room Air 06/21/17 00:27 37.0 89 28 116/70 93 Room Air Physical Exam General Appearance: WD/WN, + mild distress Respiratory/Chest: lungs clear, no respiratory distress, no accessory muscle use, + decreased breath sounds (poor inspiratory effort due to pleuritic chest pain) Cardiovascular: regular rate, rhythm, no JVD, no murmur Abdomen: normal bowel sounds, non tender, soft Extremities: normal range of motion, non-tender, no calf tenderness, normal capillary refill Neurologic/Psychiatric: alert, normal mood/affect, oriented x 3 Skin: normal color, warm/dry, no rash Laboratory Results Results Past 24 Hours Test 06/21/17 00:50 06/21/17 01:45 06/21/17 02:41 06/21/17 04:54 Range/Units White Blood Count 19.64 4.8-10.8 K/uL Red Blood Count 4.29 4.7-6.1 M/uL Hemoglobin 12.8 14.0-18.0 g/dL Hematocrit 37.1 42-52 % Mean Corpuscular Volume 86.5 80-100 fL Mean Corpuscular Hemoglobin 29.8 25-34 pg Mean Corpuscular Hemoglobin Concent 34.5 32-36 g/dl Platelet Count 655 130-400 K/uL Mean Platelet Volume 8.7 7.4-10.4 fL RDW Standard Deviation 42.4 36.4-46.3 fL RDW Coefficient of Variation 13.4 11.5-14.5 % Neutrophils % (Manual) 75.6 % Lymphocytes % (Manual) 13.9 % Monocytes % (Manual) 6.1 % Eosinophils % (Manual) 2.6 % Basophils % (Manual) 0.9 0-2 % Metamyelocytes % 0.9 % Neutrophils # (Manual) 14.85 1.4-6.5 K/uL Total Absolute Neutrophils 14.85 1.4-6.5 K/uL Lymphocytes # (Manual) 2.73 1.2-3.4 K/uL Total Absolute Lymphocytes 2.73 1.2-3.4 K/uL Monocytes # (Manual) 1.20 0.11-0.59 K/uL Eosinophils # (Manual) 0.51 0-0.5 K/uL Basophils # (Manual) 0.18 0-0.2 K/uL Metamyelocytes # 0.18 0-0 K/uL Red Blood Cell Morphology Unremarkable Prothrombin Time 11.2 9.0-12.0 SECONDS Prothromb Time International Ratio 1.0 0.9-1.1 Activated Partial Thromboplast Time 35.2 21.0-31.0 SECONDS Partial Thromboplastin Ratio 1.4 Sodium Level 135 136-145 mmol/L Potassium Level 3.8 3.5-5.1 mmol/L Chloride Level 101 98-107 mmol/L Carbon Dioxide Level 28 21-32 mmol/L Anion Gap 6.0 3-11 mmol/L Blood Urea Nitrogen 15 7-18 mg/dl Creatinine 1.00 0.60-1.40 mg/dl Est Creatinine Clear Calc Drug Dose 113.8 ml/min Estimated GFR () 110.2 Estimated GFR (Non- 95.1 BUN/Creatinine Ratio 15.4 10-20 Random Glucose 114 70-99 mg/dl Calcium Level 9.1 8.5-10.1 mg/dl Magnesium Level 2.2 1.8-2.4 mg/dl Total Bilirubin 0.5 0.2-1 mg/dl Direct Bilirubin 0.3 0-0.2 mg/dl Aspartate Amino Transf (AST/SGOT) 128 15-37 U/L Alanine Aminotransferase (ALT/SGPT) 164 12-78 U/L Alkaline Phosphatase 207 45-117 U/L Troponin I < 0.015 0-0.045 ng/ml Total Protein 8.0 6.4-8.2 gm/dl Albumin 2.8 3.4-5.0 gm/dl Lipase 84 73-393 U/L Lyme Disease IgG Antibody NEG NEG Lyme Disease IgM Antibody NEG NEG Hepatitis B Surface Antigen NEG NEG Hepatitis C Antibody NEG NEG Bedside Lactic Acid Venous 0.55 0.90-1.70 mmol/L Urine Color YELLOW Urine Appearance CLEAR CLEAR Urine pH 6.5 4.5-7.5 Urine Specific [place] 1.027 1.000-1.030 Urine Protein NEG NEG Urine Glucose (UA) NEG NEG Urine Ketones NEG NEG Urine Occult Blood NEG NEG Urine Nitrite NEG NEG Urine Bilirubin NEG NEG Urine Urobilinogen NEG NEG Urine Leukocyte Esterase NEG NEG Test 06/21/17 05:15 06/21/17 06:20 06/21/17 10:55 06/21/17 10:56 Range/Units Influenza Type A (RT-PCR) Neg for Influ A NEG Influenza Type A Antigen Neg for Influ A NEG Influenza Type B Antigen Neg for Influ B NEG Influenza Type B (RT-PCR) Neg for Influ B NEG Urine Opiates Screen POS NEG Urine Methadone, Qualitative NEG NEG Urine Barbiturates NEG NEG Urine Phencyclidine (PCP) Level NEG NEG Ur Amphetamine/Methamphetamine NEG NEG MDMA (Ecstasy) Screen NEG NEG Urine Benzodiazepines Screen NEG NEG Urine Cocaine Metabolite NEG NEG Urine Marijuana (THC) NEG NEG Erythrocyte Sedimentation Rate 88 0-14 mm/hr C-Reactive Protein 33.80 0-0.29 mg/dl Rheumatoid Factor < 10.0 0-15 U/mL Test 06/21/17 11:30 06/21/17 16:19 Range/Units HIV (1&2) Ab and P24 Ag, 4th Gener NEG NEG Microbiology Results 06/21/17 Blood Culture, Received Pending 06/21/17 Blood Culture, Received Pending 06/21/17 Cryptococcal Antigen - Final, Complete 06/21/17 Acid Fast Stain, Received Pending 06/21/17 Mycobacterial Culture, Received Pending 06/21/17 Gram Stain - Final, Resulted 06/21/17 Sputum Culture, Resulted Pending Assessment and Plan 37 y/o M with history of depression and OCD presented with cough, congestion and general malaise found to have R upper and left lower lobe consolidations with foci of cavitation on CT. 1) Pneumonia with cavitations and possibly abscess. - Airborne precautions - Started on Vanc, Zosyn and Azithromycin ----> switched from clinda - Send sputum cx and sputum culture x3 to rule out TB - Send HIV, ANCA, DIAZ, ESR, CRP and cryptococcal and cocci/blastomycosis Ab - Sent for legionella antigen - Incentive spirometry - O2 sats to remain above 92%Continue with airborne precautions - Send blood culture 2) Depression/anxiety, OCD - pt will continue fluoxetine. 3) Excessive alcohol intake - he has minimized intake over the past 2 weeks and has not had any alcohol for a few days. - continue to monitor for withdrawal 4) LFTs abnormal - due to infection vs alcohol - will continue to trend 5) DVT prophylaxis - lovenox 40mg subq FULL CODE Continued [facility] stay due to: multiple IV medications needed Reviewed: Pt Seen/Exam by Me History Resident Physician Supervision Note: I interviewed and examined the patient. Discussed with Dr. Cano and agree with findings and plan as documented in the note. Any exceptions or clarifications are listed here: Pt with significant right sided pleuritic chest pain but improved now with toradol. Coughing up copious yellow-green sputum, no hemoptysis ever. Says he has had hyperhidrosis his whole life so his profuse sweating is normal for him. Very anxious about his condition currently. Not SOB but did require O2 earlier today when was splinting with CP. Vitals reviewed Anxious, profusely diaphoretic, pleasant, talkative RRR no mgr Lungs with decreased BS right lower and mid lung chou, no wheezes, decreased BS throughout, poor inspiratory effort Abd +BS soft NT ND, no definite HSM Ext no edema Skin: a few scattered pinpoint scabs on legs from previous excoriated bug bites 37 yo male with CAP vs necrotizing PNA with abscess etiology TB vs MRSA, Strep/ Staph, atypical, fungal, autoimmune, less lkely underlying malignancy. -Acute hypoxemic respiratory failure secondary to PNA -checking labs and sputum, AFB, HIV, atypicals as above Elevated LFTs--> check liver US but likely secondary to infection and sepsis -supplemental O2 prn -Toradol prn pleuritic pain, Flutter valve, nebs -Appreciate Pulm consult -Consider ID consult Documented By: Lucia Arceo
[2017-06-21] MEDS ORDERED: PIPERACILL/TAZOBAC CONSULT ACTIVE PRN (19:00)
[2017-06-21] MEDS ORDERED: VANCOMYCIN CONSULT ACTIVE PRN (19:00)
--- NOTE | 2017-06-21 19:23 | Pharmacy Progress Note ---
Pharmacy Abx Initial Consult Date of Service Jun 21, 2017. Pharmacy Dosing Scope Date of Consult: 06/21/17 Consultation requested by: Dr. Yessy Cano Pharmacy is consulted to initiate Vancomycin/Zosyn IV dosing therapy, order appropriate labs and adjust drug dose/frequency. Subjective The patient is a 37 year old male admitted on Jun 21, 2017 at 04:36. Objective Height (Feet): 5 Height (Inches): 8.00 Weight (Kilograms): 101.000 Vital Signs (Past 12Hrs) Vital Signs Past 12 Hours Date Time Temp Pulse Resp B/P (MAP) Pulse Ox O2 Delivery O2 Flow Rate FiO2 06/21/17 16:17 37.6 108 22 128/71 (90) 06/21/17 16:00 92 Room Air 06/21/17 15:06 102 16 92 Room Air 06/21/17 12:00 92 Room Air 06/21/17 11:54 36.7 86 20 123/80 (94) 92 Room Air 06/21/17 09:21 36.8 91 22 135/85 95 Room Air 06/21/17 08:20 83 20 138/68 96 Lab Results (24Hrs) Laboratory Tests (24 Hours) Test 06/21/17 00:50 06/21/17 10:56 White Blood Count 19.64 K/uL (4.8-10.8) H Red Blood Count 4.29 M/uL (4.7-6.1) L Hemoglobin 12.8 g/dL (14.0-18.0) L Hematocrit 37.1 % (42-52) L Mean Corpuscular Volume 86.5 fL (80-100) Mean Corpuscular Hemoglobin 29.8 pg (25-34) Mean Corpuscular Hemoglobin Concent 34.5 g/dl (32-36) Platelet Count 655 K/uL (130-400) H Mean Platelet Volume 8.7 fL (7.4-10.4) C-Reactive Protein 33.80 mg/dl (0-0.29) H Erythrocyte Sedimentation Rate 88 mm/hr (0-14) H Micro Results Cultures and serologies pending: Date/Time Source Procedure Growth Status 06/21/17 02:35 Blood Blood Culture Pending Received 06/21/17 02:25 Blood Blood Culture Pending Received 06/21/17 01:45 Blood Cryptococcal Antigen - Final Complete 06/21/17 04:54 Sputum Expectorated Sputum Acid Fast Stain Pending Received 06/21/17 04:54 Sputum Expectorated Sputum Mycobacterial Culture Pending Received 06/21/17 04:54 Sputum Expectorated Sputum Gram Stain - Final Resulted 06/21/17 04:54 Sputum Expectorated Sputum Sputum Culture Pending Resulted Assessment & Plan Assessment 37 year old male with multi-focal pneumonia/cavitation with lung abscess empirically starting IV Azithromycin, IV Zosyn and IV Vancomycin. Blood and sputum cultures pending. Plan Broad spectrum antibiotics for treatment of complicated pneumonia process Vancomycin IV * Loading dose: 2500 mg (25 mg/kg) * Maintenance dose: 1750 mg IV (17.5 mg/kg) every 10 hours * Goal trough level for pneumonia: 15 to 20 mcg/mL * Trough level ordered for Friday06/23/17 around the 1400 hours dose Piperacillin/tazobactam * 4.5 g bolus administered over 30 minutes, then 4.5 g IV extended infusion every 8 hours for CrCl greater than 20 mL/min OR every 12 hours for CrCl 20 mL/ min or less and dialysis. * Aggressive dosing selected due to critically ill status (complex pulmonary infection)/BMI 35. Pharmacy will continue to follow and will adjust dose/frequency as necessary. Thank you.
[2017-06-21] MEDS ORDERED: PIPERACILL/TAZOBAC IV 4.5 GM in DEXTROSE 5% 100ML IV ONE (20:00)
[2017-06-21] MEDS: AZITHROMYCIN IV 500 MG in DEXTROSE 5% 250ML 250 ML IV SCH (20:08)
[2017-06-21] MEDS ORDERED: VANCOMYCIN INJ 2,500 MG in SODIUM CHLORIDE 0.9% 500ML 500 ML IV ONE (21:00)
[2017-06-22] VITALS (15 sets, daily range): BP systolic 122–143; BP diastolic 71–86; PULSE 90–107; TEMP 36.5–37.2; O2SAT 85–96
[2017-06-22] MEDS: HEPARIN SOD 5000 UNIT/0.5 ML CARP SQ SCH (00:13)
[2017-06-22] MEDS: PIPERACILL/TAZOBAC IV 4.5 GM in DEXTROSE 5% 100ML 100 ML IV SCH ×3 (03:00→16:43)
[2017-06-22] MEDS: ALBUT/IPRATROP 3MG/0.5MG NEB 3 ML VIAL INH PRN (04:20)
[2017-06-22] MEDS: KETOROLAC TROMETHAMINE 30 MG/ML VIAL IV. PRN ×3 (04:55→17:20)
[2017-06-22 06:15] LABS: HEMATOCRIT 31.6 % (42-52); MEAN CELL VOLUME 86.1 fL (80-100); MEAN CORPUSCULAR HEMOGLOBIN 29.7 pg (25-34); MEAN CORPUSCULAR HGB CONC 34.5 g/dl (32-36); MEAN PLATELET VOLUME 8.6 fL (7.4-10.4); PLATELET COUNT 628 K/uL (130-400); RED BLOOD COUNT 3.67 M/uL (4.7-6.1)
[2017-06-22 06:26] LABS: BASO % 0.1 %; BASO ABS # 0.05 K/uL (0-0.2); COMPLETE YES; EOS % 0.1 %; IG% 2.5 %; LYMPH % 5.8 %; LYMPH ABS # 2.13 K/uL (1.2-3.4); MONO % 6.4 %; NEUT % 85.1 %
[2017-06-22 06:32] LABS: BUN/CREATININE RATIO 12.8 (10-20); CALCIUM 8.5 mg/dl (8.5-10.1); CREATININE 0.97 mg/dl (0.60-1.40); POTASSIUM 3.8 mmol/L (3.5-5.1)
[2017-06-22 06:35] LABS: ALB/GLOB RATIO 0.5 (0.9-2)
--- NOTE | 2017-06-22 06:57 | Progress Note ---
Progress Note Date of Service Jun 22, 2017. Progress Note ID Consult Dictated #[id number] A/P: 1. Cavitary PNA 2. Leukocytosis -Continue emperic abx, follow cultures, culture afb pending -will follow, thank you
[2017-06-22] MEDS: FLUOXETINE HCL 20 MG CAP PO SCH (07:41)
[2017-06-22] MEDS: ENOXAPARIN 40 MG/0.4 ML SYR SQ SCH (07:47)
[2017-06-22] MEDS: VANCOMYCIN INJ 1,750 MG in SODIUM CHLORIDE 0.9% 500ML 500 ML IV SCH ×2 (07:49→16:42)
[2017-06-22] MEDS: ALBUT/IPRATROP 3MG/0.5MG NEB 3 ML VIAL INH SCH ×3 (09:06→19:16)
--- NOTE | 2017-06-22 11:08 | Pulmonology Progress Note ---
Pulmonary Progress Note Date of Service Jun 22, 2017. Attending Subjective Patient seen and examined. He states he was up for 35 hours. He finally went to sleep early this morning. He states that he has been coughing somewhat and able to produce some clear colored sputum. He is still having profuse sweating. Pleuritic right sided chest has improved. Objective VS reviewed. Tm 37.2, BP 122/71--131/78, P 90-107, RR 16-22, P85-96% on 2-4L NC. Gen: AAOx3, NAD, speaking in full sentences without acute distress, appears somewhat anxious CVS: S1, S2, tachycardic Chest/Lungs: Good air entry b/l, crackles on right middle lower lobes, mildly tachypneic Abd: soft/NT/ND/BS+ Ext: no cyanosis, no clubbing, no edema Labs reviewed. WBC 19-->37 Hgb 12-->10.9 Plt 655-->628 Na 135-->131 AST 40 ALT 123 AP 182 CRP 33.8 Procalcitonin 2 HIV 06/21/2017--negative Cocci Ab--pending Influenza A and B negative Urine Legionella --pending Cryptococcal Ag--negative RF--negative CHAVEZ, ANCA--pending Blood cultures 06/21/2017--no growth to date Sputum culture 06/21/2017--pending Sputum AFB x3--pending Medications reviewed. Currently on Vancomycin, Zosyn and Azithromycin IV, DuoNeb , Lovenox and morphine prn for pain. Assessment & Plan Pneumonia with cavitations Leukocytosis Pleurisy Transaminitis From patient history this is most likely a necrotizing bacterial pneumonia, however other etiologies should be ruled out, such has fungal and mycobaterium etiologies (ie TB). He has history of heavy alcohol use recently, which puts aspiration high on the differential. Autoimmune diseases like Manjeet's granulomatosis or RA should be considered and ruled out. He denies any sinusitis. Also malignancy, such bronchogenic CA is possibility, but less likely. Continue with airborne precautions F/u sputum and AFB cultures Blood cultures are negative to date. Consider MO to rule out septic emboli HIV is negative, urine drug screen only positive for opiates, which he received in the the ER ANCA,CHAVEZ still pending. RA < 10. ESR, CRP are both elevated which is expected in an acute inflammatory response. Cryptoccocal Ab is negative. Cocci Ab is still pending. Continue with broad spectrum antibiotics to cover for MRSA and anaerobes. He was on clindamycin, now on vancomycin, zosyn and azithromycin. ID is on board and following Provide adequate pain control and incentive spirometry If work up is negative, a bronchoscopy with BAL and biopsy is warranted Supplement oxygen if needed to maintain SaO2 >92%. Dr. Mcginnis will take over the pulmonary service as of tomorrow and continue to follow. Data Medications: Current Inpatient Medications Medications (Trade) Dose Ordered Sig/Lanny Route Start Time Stop Time Status Last Admin Dose Admin Ioversol (Optiray 320) 125 ml UD PRN IV 06/21/17 01:45 06/25/17 01:44 Fluoxetine HCl (Prozac Cap) 20 mg DAILY PO 06/21/17 09:00 07/21/17 08:59 06/22/17 07:41 20 MG Acetaminophen (Tylenol Tab) 650 mg Q4H PRN PO 06/21/17 04:30 07/21/17 04:29 Al Hydrox/Mg Hydrox/Simethicone (Maalox Max Susp) 15 ml Q4H PRN PO 06/21/17 04:30 07/21/17 04:29 Magnesium Hydroxide (Milk Of Magnesia Susp) 30 ml Q12H PRN PO 06/21/17 04:30 07/21/17 04:29 Zolpidem Tartrate (Ambien Tab) 5 mg HSZ PRN PO 06/21/17 04:30 07/21/17 04:29 Ondansetron HCl (Zofran Inj) 4 mg Q6H PRN IV 06/21/17 04:30 07/21/17 04:29 Morphine Sulfate (MoRPHine SULFATE INJ) 2 mg Q30M PRN IV 06/21/17 04:30 07/05/17 04:29 06/21/17 12:07 2 MG Polyethylene (Miralax Powder Packet) 17 gm DAILY PRN PO 06/21/17 04:30 07/21/17 04:29 Ketorolac Tromethamine (Toradol Inj) 30 mg Q6H PRN IV. 06/21/17 16:15 06/26/17 16:14 06/22/17 04:55 30 MG Azithromycin 500 mg/Dextrose 255 ml @ 170 mls/hr DAILY@1830 IV 06/21/17 18:30 06/28/17 18:29 06/21/17 20:08 170 MLS/HR Piperacillin Sod/ Tazobactam Sod 4.5 gm/Dextrose 120 ml @ 30 mls/hr Q8H IV 06/22/17 02:00 06/28/17 17:59 06/22/17 10:09 30 MLS/HR Vancomycin HCl 1750 mg/Sodium Chloride 535 ml @ 200 mls/hr Q10H IV 06/22/17 08:00 06/28/17 20:59 06/22/17 07:49 200 MLS/HR Enoxaparin Sodium (Lovenox Inj) 40 mg QAM SQ 06/22/17 09:00 07/22/17 08:59 06/22/17 07:47 40 MG Piperacillin Sod/ Tazobactam Sod (Consult) 1 ea UD PRN N/A 06/21/17 19:00 06/28/17 18:59 Vancomycin HCl (Consult) 1 ea UD PRN N/A 06/21/17 19:00 06/28/17 18:59 Albuterol/ Ipratropium (Duoneb) 3 ml Q6R INH 06/22/17 09:00 07/22/17 08:59 06/22/17 09:06 3 ML Vital Signs: Date Time Temp Pulse Resp B/P (MAP) Pulse Ox O2 Delivery O2 Flow Rate FiO2 06/22/17 09:06 105 16 90 Room Air 06/22/17 08:05 91 Nasal Cannula 4.0 06/22/17 08:00 91 Nasal Cannula 4.0 06/22/17 07:57 36.9 94 22 125/72 (89) 85 Room Air 06/22/17 04:20 107 16 92 Room Air 06/22/17 04:00 Nasal Cannula 2.0 06/22/17 04:00 37.2 104 22 122/71 (88) 92 Room Air 06/22/17 00:00 37.1 90 20 131/78 (95) 96 Nasal Cannula 2.0 06/21/17 23:59 Nasal Cannula 2.0 06/21/17 20:00 Nasal Cannula 2.0 06/21/17 19:50 36.9 96 22 128/84 (99) 91 Nasal Cannula 2.0 06/21/17 16:17 37.6 108 22 128/71 (90) 06/21/17 16:00 92 Room Air 06/21/17 15:06 102 16 92 Room Air 06/21/17 12:00 92 Room Air 06/21/17 11:54 36.7 86 20 123/80 (94) 92 Room Air Laboratory Results: Last 24 Hours Test 06/21/17 10:55 06/21/17 10:56 06/21/17 11:30 06/21/17 16:19 Urine Opiates Screen POS Urine Methadone, Qualitative NEG Urine Barbiturates NEG Urine Phencyclidine (PCP) Level NEG Ur Amphetamine/Methamphetamine NEG MDMA (Ecstasy) Screen NEG Urine Benzodiazepines Screen NEG Urine Cocaine Metabolite NEG Urine Marijuana (THC) NEG Erythrocyte Sedimentation Rate 88 mm/hr C-Reactive Protein 33.80 mg/dl Rheumatoid Factor < 10.0 U/mL HIV (1&2) Ab and P24 Ag, 4th Gener NEG Test 06/22/17 05:15 White Blood Count 37.00 K/uL Red Blood Count 3.67 M/uL Hemoglobin 10.9 g/dL Hematocrit 31.6 % Mean Corpuscular Volume 86.1 fL Mean Corpuscular Hemoglobin 29.7 pg Mean Corpuscular Hemoglobin Concent 34.5 g/dl Platelet Count 628 K/uL Mean Platelet Volume 8.6 fL Neutrophils (%) (Auto) 85.1 % Lymphocytes (%) (Auto) 5.8 % Monocytes (%) (Auto) 6.4 % Eosinophils (%) (Auto) 0.1 % Basophils (%) (Auto) 0.1 % Neutrophils # (Auto) 31.50 K/uL Lymphocytes # (Auto) 2.13 K/uL Monocytes # (Auto) 2.35 K/uL Eosinophils # (Auto) 0.04 K/uL Basophils # (Auto) 0.05 K/uL RDW Standard Deviation 43.4 fL RDW Coefficient of Variation 13.6 % Immature Granulocyte % (Auto) 2.5 % Immature Granulocyte # (Auto) 0.93 K/uL Sodium Level 131 mmol/L Potassium Level 3.8 mmol/L Chloride Level 99 mmol/L Carbon Dioxide Level 24 mmol/L Anion Gap 8.0 mmol/L Blood Urea Nitrogen 12 mg/dl Creatinine 0.97 mg/dl Est Creatinine Clear Calc Drug Dose 119.1 ml/min Estimated GFR () 114.3 Estimated GFR (Non- 98.6 BUN/Creatinine Ratio 12.8 Random Glucose 126 mg/dl Calcium Level 8.5 mg/dl Total Bilirubin 0.6 mg/dl Aspartate Amino Transf (AST/SGOT) 40 U/L Alanine Aminotransferase (ALT/SGPT) 123 U/L Alkaline Phosphatase 182 U/L Total Protein 7.5 gm/dl Albumin 2.4 gm/dl Globulin 5.1 gm/dl Albumin/Globulin Ratio 0.5 Procalcitonin 2.02 ng/ml
[2017-06-22] MEDS ORDERED: NURSING VERBAL MED ORDER ONE (13:30)
--- NOTE | 2017-06-22 13:46 | ECHOCARDIOGRAM REPORT ---
*NOTICE TO RECEIVING REPUBLICAN AGENCY This information is strictly Confidential and protected under [place] law. [place] law prohibits you from making any further disclosure of this information unless further disclosure is expressly permitted by the written consent of the person to whom it pertains or is authorized by law. A general authorization for the release of medical or other information is not sufficient for this purpose. Hospital accepts no responsibility if the information is made available to any other person, INCLUDING THE PATIENT. Interpretation Summary * Name: ROSA ARROYO Study Date: 06/21/2017 12:16 PM BP: 135/85 mmHg * Patient Location: C.2T\S\S231\S\1 HR: 97 * : 1980 (M/d/yyyy) Gender: Male Height: 68 in * Age: 37 yrs Ethnicity: CA Weight: 222 lb * Ordering Physician: Lupe Foley * Referring Physician: Self, Referred * Performed By: Ethel Parrish RCS * * Reason For Study: ENDOCARDITIS * BSA: 2.1 m2 * -- Conclusions -- * Left ventricular systolic function is normal. * No regional wall motion abnormalities noted. * Ejection Fraction = 65-70%. * A patent foramen ovale is suspected. Procedure Details * A complete two-dimensional transthoracic echocardiogram was performed (2D, M-mode, Doppler and color flow Doppler). * A saline contrast injection was performed to assess for cardiac shunting. * The injection was performed through an intravenous line in the right arm. * The attending nurse who injected the saline contrast was JOANNE MONIQUE, RN. * A total of 30 cc of agitated saline was given. Left Ventricle * The left ventricle is normal in size. * There is normal left ventricular wall thickness. * Left ventricular systolic function is normal. * Ejection Fraction = 65-70%. * No regional wall motion abnormalities noted. Right Ventricle * The right ventricle is grossly normal size. * The right ventricular systolic function is normal as assessed by tricuspid annular plane systolic excursion (TAPSE) (normal >1.5 cm). Atria * The left atrium is mildly dilated. * Right atrial size is normal. * A patent foramen ovale is suspected. * Injection of contrast documented an interatrial shunt. Mitral Valve * The mitral valve is normal in structure and function. * There is no mitral valve stenosis. * Significant mitral regurgitation is absent. Tricuspid Valve * The tricuspid valve anatomy is normal. * There is no tricuspid stenosis. * Significant tricuspid regurgitation is absent. Aortic Valve * The aortic valve is normal in structure and function. * No hemodynamically significant valvular aortic stenosis. * There is no significant aortic regurgitation. Pulmonic Valve * The pulmonary valve is not well seen, but the Doppler examination is normal without significant regurgitation or stenosis. Great Vessels * The aortic root is normal size. * The pulmonary artery is not well visualized, but is probably normal size. Pericardium/Pleural * There is no pericardial effusion. Great Vessels * Normal inferior vena cava size and collapsability with sniff indicates a normal right atrial pressure of 3 mmHg MMode 2D Measurements and Calculations IVSd 1.4 cm IVSs 1.9 cm LVIDd 3.8 cm LVIDs 2.5 cm LVPWd 1.1 cm LVPWs 1.5 cm IVS/LVPW 1.3 FS 34.1 % EDV(Teich) 61.6 ml ESV(Teich) 22.3 ml EF(Teich) 63.8 % EDV(cubed) 54.4 ml ESV(cubed) 15.6 ml EF(cubed) 71.4 % % IVS thick 36.4 % % LVPW thick 38.3 % LV mass(C)d 164.2 grams LV mass(C)dI 76.8 grams/m\S\2 LV mass(C)s 163.3 grams LV mass(C)sI 76.4 grams/m\S\2 SV(Teich) 39.3 ml SI(Teich) 18.4 ml/m\S\2 SV(cubed) 38.8 ml SI(cubed) 18.2 ml/m\S\2 Ao root diam 3.8 cm Ao root area 11.3 cm\S\2 LA dimension 3.8 cm LA/Ao 10 LVOT diam 2.0 cm LVOT area 3.1 cm\S\2 Doppler Measurements and Calculations MV E max ewa 93.8 cm/sec MV A max ewa 78.7 cm/sec MV E/A 1.2 MV P1/2t max ewa 102.1 cm/sec MV P1/2t 30.1 msec MVA(P1/2t) 7.3 cm\S\2 MV dec slope 992.8 cm/sec\S\2 MV dec time 0.14 sec PA V2 max 110.6 cm/sec PA max PG 4.9 mmHg TR max ewa 262.6 cm/sec
--- NOTE | 2017-06-22 15:34 | INFECT. DISEASE CONSULTATION ---
DATE OF CONSULTATION: 06/22/2017 REQUESTING PHYSICIAN: Dr. Alvarado. HISTORY OF PRESENT ILLNESS: This is a 37-year-old gentleman who was admitted after he had many weeks of feeling flu-like symptoms and fatigue. He was also complaining of pleuritic chest pain, which began weeks ago as well. He did have a CAT scan in the Emergency Room as part of his workup and he was found to have right lower lobe and upper lobe consolidative changes with 2 cavitary lesions, one measuring 3.4 x 5.8 cm and one measuring 4.3 x 5 He is coughing, what he describes as clear sputum. He denies any hemoptysis. He denies any fevers or chills at home, but states he has had sweating. He states he was not sleeping well up until yesterday when he was admitted to the hospital. He was placed in airborne isolation. He does have a history of traveling to [place]. 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 He denies any intravenous drug use; however, his screen was positive for opiates. His sed rate is elevated at 88 and his CRP is elevated at 33. He had a white blood cell count of 19,000, which is up to 37,000 today. He was placed initially on clindamycin and then changed to vancomycin, Zosyn and azithromycin. His T-max is 37.6. On my examination, he is resting comfortably. He states his pleuritic chest pain has improved. He currently denies any cough. One sputum is pending, blood cultures are pending as well. He denies any chest pain on my exam. He denies any nausea, vomiting or diarrhea. He denies any weight loss. He does have sweats at home which are new. He denies any sick contacts. He does have a significant alcohol history and certainly aspiration would be a consideration as well and he has been placed on multiple antibiotics pending additional culture results. All remaining review of systems is reviewed and unremarkable. PAST MEDICAL HISTORY: Significant for depression and OCD. PAST SURGICAL HISTORY: He denies any surgical history. FAMILY HISTORY: Not contributory. SOCIAL HISTORY: Negative for tobacco use. 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 He did travel to [place] sometime a few months ago but denies any sick contacts there. He does have increased alcohol use. He denies any history of IV drug abuse. An HIV test is pending. ALLERGIES: He has no known drug allergies. CURRENT MEDICATIONS: Include Lovenox, DuoNebs, vancomycin, Zosyn, azithromycin, Toradol, Prozac, Tylenol, Maalox, milk of magnesia, Ambien, Zofran, morphine, MiraLax. He also did receive clindamycin in the ER. PHYSICAL EXAMINATION: VITAL SIGNS: T-max is 37.6. He is currently afebrile, pulse 107, respiratory rate is 16, blood pressure is 122/71, and oxygen saturation is 92-96%. GENERAL: He is awake, alert and oriented x3 and he is in no acute distress. HEENT: Mucous membranes are moist. Extraocular muscles are intact. HEART: Regular. LUNGS: Decreased breath sounds. There is no wheezing. ABDOMEN: Soft, nontender, nondistended. EXTREMITIES: There is no lower extremity edema bilaterally. SKIN: Without rash. LABORATORY STUDIES: CBC today reveals a white blood cell count of 37, hemoglobin 10.9 and platelets are 628. A sed rate was 88 in the ER, CRP is 33.8. Chemistry panel reveals a sodium of 131, potassium 3.8, chloride 99, bicarbonate 24, BUN 12, creatinine 0.9, glucose is 127. AST is 40, down from 128; ALT is 123, down from 164; cryptococcal antigen is negative. Sputum culture is pending. Blood cultures are pending. AFB smears are pending as well. IMAGING DATA: CT of the chest is as reported above. ASSESSMENT AND PLAN: Cavitary pneumonia, certainly aspiration bacteria or atypical organisms would be considered. He will remain on broad spectrum antibiotics. He will need 3 AFB smears to be negative to be removed from airborne isolation. If he is unable to provide a specimen, the bronchoscopy would be of benefit. We will follow along with you. Thank you for this consultation. YORDY
[2017-06-22] MEDS: GUAIFENESIN 600 MG TABCR PO SCH ×2 (16:42→19:39)
[2017-06-22] MEDS: AZITHROMYCIN IV 500 MG in DEXTROSE 5% 250ML 250 ML IV SCH (16:43)
--- NOTE | 2017-06-22 18:02 | Family Medicine Progress Note ---
Progress Note Date of Service Jun 22, 2017. Subjective Pt evaluation today including: conversation w/ patient, physical exam, chart review, lab review, conversation w/ network systems consultant, review of inpatient medication list Pain: 2/10 PO Intake: good Voiding: no voiding problems Feeling much better today. Slept well Mild chest pain with deep inspiration 2/10 Coughing up green sputum Constitutional: No fever, No chills Respiratory: + cough, + sputum, No shortness of breath Cardiovascular: + chest pain, No edema, No palpitations Abdomen: No pain, No nausea, No vomiting, No diarrhea Musculoskeletal: No joint pain, No muscle pain, No calf pain Skin: No rash, No itch, No new/changing skin lesions Medications Current Inpatient Medications Medications (Trade) Dose Ordered Sig/Lanny Route Start Time Stop Time Status Last Admin Dose Admin Ioversol (Optiray 320) 125 ml UD PRN IV 06/21/17 01:45 06/25/17 01:44 Fluoxetine HCl (Prozac Cap) 20 mg DAILY PO 06/21/17 09:00 07/21/17 08:59 06/22/17 07:41 20 MG Acetaminophen (Tylenol Tab) 650 mg Q4H PRN PO 06/21/17 04:30 07/21/17 04:29 Al Hydrox/Mg Hydrox/Simethicone (Maalox Max Susp) 15 ml Q4H PRN PO 06/21/17 04:30 07/21/17 04:29 Magnesium Hydroxide (Milk Of Magnesia Susp) 30 ml Q12H PRN PO 06/21/17 04:30 07/21/17 04:29 Zolpidem Tartrate (Ambien Tab) 5 mg HSZ PRN PO 06/21/17 04:30 07/21/17 04:29 Ondansetron HCl (Zofran Inj) 4 mg Q6H PRN IV 06/21/17 04:30 07/21/17 04:29 Morphine Sulfate (MoRPHine SULFATE INJ) 2 mg Q30M PRN IV 06/21/17 04:30 07/05/17 04:29 06/21/17 12:07 2 MG Polyethylene (Miralax Powder Packet) 17 gm DAILY PRN PO 06/21/17 04:30 07/21/17 04:29 Ketorolac Tromethamine (Toradol Inj) 30 mg Q6H PRN IV. 06/21/17 16:15 06/26/17 16:14 06/22/17 17:20 30 MG Azithromycin 500 mg/Dextrose 255 ml @ 170 mls/hr DAILY@1830 IV 06/21/17 18:30 06/28/17 18:29 06/22/17 16:43 170 MLS/HR Piperacillin Sod/ Tazobactam Sod 4.5 gm/Dextrose 120 ml @ 30 mls/hr Q8H IV 06/22/17 02:00 06/28/17 17:59 06/22/17 16:43 30 MLS/HR Vancomycin HCl 1750 mg/Sodium Chloride 535 ml @ 200 mls/hr Q10H IV 06/22/17 08:00 06/28/17 20:59 06/22/17 16:42 200 MLS/HR Enoxaparin Sodium (Lovenox Inj) 40 mg QAM SQ 06/22/17 09:00 07/22/17 08:59 06/22/17 07:47 40 MG Piperacillin Sod/ Tazobactam Sod (Consult) 1 ea UD PRN N/A 06/21/17 19:00 06/28/17 18:59 Vancomycin HCl (Consult) 1 ea UD PRN N/A 06/21/17 19:00 06/28/17 18:59 Albuterol/ Ipratropium (Duoneb) 3 ml Q6R INH 06/22/17 09:00 07/22/17 08:59 06/22/17 13:48 3 ML Guaifenesin (Mucinex Contr Rel Tab) 1,200 mg Q12 PO 06/22/17 13:45 07/22/17 13:44 06/22/17 16:42 1,200 MG Objective Vital Signs Date Time Temp Pulse Resp B/P (MAP) Pulse Ox O2 Delivery O2 Flow Rate FiO2 06/22/17 16:00 91 Nasal Cannula 4.0 06/22/17 15:40 37.2 91 22 129/82 (98) 94 Nasal Cannula 4.0 06/22/17 14:06 94 16 86 Room Air 06/22/17 12:00 91 Nasal Cannula 4.0 06/22/17 10:33 36.9 106 20 122/73 (89) 93 Nasal Cannula 4.0 06/22/17 09:06 105 16 90 Room Air 06/22/17 08:05 91 Nasal Cannula 4.0 06/22/17 08:00 91 Nasal Cannula 4.0 06/22/17 07:57 36.9 94 22 125/72 (89) 85 Room Air 06/22/17 04:20 107 16 92 Room Air 06/22/17 04:00 Nasal Cannula 2.0 06/22/17 04:00 37.2 104 22 122/71 (88) 92 Room Air 06/22/17 00:00 37.1 90 20 131/78 (95) 96 Nasal Cannula 2.0 06/21/17 23:59 Nasal Cannula 2.0 06/21/17 20:00 Nasal Cannula 2.0 06/21/17 19:50 36.9 96 22 128/84 (99) 91 Nasal Cannula 2.0 Physical Exam General Appearance: WD/WN, no apparent distress Neck: no JVD, no carotid bruits, trachea midline Respiratory/Chest: lungs clear, no respiratory distress, no accessory muscle use, + decreased breath sounds Cardiovascular: regular rate, rhythm, no edema, no murmur Abdomen: normal bowel sounds, non tender, soft Extremities: non-tender, no calf tenderness, normal capillary refill Neurologic/Psychiatric: no motor/sensory deficits, normal mood/affect, oriented x 3 Skin: normal color, warm/dry, no rash Laboratory Results Results Past 24 Hours Test 06/22/17 05:15 Range/Units White Blood Count 37.00 4.8-10.8 K/uL Red Blood Count 3.67 4.7-6.1 M/uL Hemoglobin 10.9 14.0-18.0 g/dL Hematocrit 31.6 42-52 % Mean Corpuscular Volume 86.1 80-100 fL Mean Corpuscular Hemoglobin 29.7 25-34 pg Mean Corpuscular Hemoglobin Concent 34.5 32-36 g/dl Platelet Count 628 130-400 K/uL Mean Platelet Volume 8.6 7.4-10.4 fL Neutrophils (%) (Auto) 85.1 % Lymphocytes (%) (Auto) 5.8 % Monocytes (%) (Auto) 6.4 % Eosinophils (%) (Auto) 0.1 % Basophils (%) (Auto) 0.1 % Neutrophils # (Auto) 31.50 1.4-6.5 K/uL Lymphocytes # (Auto) 2.13 1.2-3.4 K/uL Monocytes # (Auto) 2.35 0.11-0.59 K/uL Eosinophils # (Auto) 0.04 0-0.5 K/uL Basophils # (Auto) 0.05 0-0.2 K/uL RDW Standard Deviation 43.4 36.4-46.3 fL RDW Coefficient of Variation 13.6 11.5-14.5 % Immature Granulocyte % (Auto) 2.5 % Immature Granulocyte # (Auto) 0.93 0.00-0.02 K/uL Sodium Level 131 136-145 mmol/L Potassium Level 3.8 3.5-5.1 mmol/L Chloride Level 99 98-107 mmol/L Carbon Dioxide Level 24 21-32 mmol/L Anion Gap 8.0 3-11 mmol/L Blood Urea Nitrogen 12 7-18 mg/dl Creatinine 0.97 0.60-1.40 mg/dl Est Creatinine Clear Calc Drug Dose 119.1 ml/min Estimated GFR () 114.3 Estimated GFR (Non- 98.6 BUN/Creatinine Ratio 12.8 10-20 Random Glucose 126 70-99 mg/dl Calcium Level 8.5 8.5-10.1 mg/dl Total Bilirubin 0.6 0.2-1 mg/dl Aspartate Amino Transf (AST/SGOT) 40 15-37 U/L Alanine Aminotransferase (ALT/SGPT) 123 12-78 U/L Alkaline Phosphatase 182 45-117 U/L Total Protein 7.5 6.4-8.2 gm/dl Albumin 2.4 3.4-5.0 gm/dl Globulin 5.1 2.5-4.0 gm/dl Albumin/Globulin Ratio 0.5 0.9-2 Procalcitonin 2.02 0-0.5 ng/ml Microbiology Results 06/22/17 Acid Fast Stain, Received Pending 06/22/17 Mycobacterial Culture, Received Pending 06/22/17 Acid Fast Stain, Received Pending 06/22/17 Mycobacterial Culture, Received Pending 06/22/17 Acid Fast Stain, Received Pending 06/22/17 Mycobacterial Culture, Received Pending Assessment and Plan 37 y/o M with history of depression and OCD presented with cough, congestion and general malaise found to have R upper and left lower lobe consolidations with foci of cavitation on CT. 1) Pneumonia with cavitations and possibly abscess. - Airborne precautions - WBC 37 as patient received steroids in the ED but has remained afebrile since started on broad spectrum antibiotics - Started on Vanc, Zosyn and Azithromycin ----> switched from clinda - Send sputum cx and sputum culture x3 to rule out TB ---> first sputum for TB negative, sputum culture negative to date - Send HIV, ANCA, DIAZ, ESR, CRP and cryptococcal and cocci/blastomycosis Ab ---- -> HIV negative today, ESR 88, Procalcitonin 2.02 - Sent for legionella antigen - Incentive spirometry and flutter valve - O2 sats to remain above 92%Continue with airborne precautions - Send blood culture 2) Depression/anxiety, OCD - pt will continue fluoxetine. - urine opiates + 3) Excessive alcohol intake - he has minimized intake over the past 2 weeks and has not had any alcohol for a few days. - continue to monitor for withdrawal 4) LFTs abnormal - due to infection vs alcohol - will continue to trend - trending down 5) DVT prophylaxis - lovenox 40mg subq FULL CODE Continued [facility] stay due to: multiple IV medications needed Reviewed: Pt Seen/Exam by Me History Resident Physician Supervision Note: I interviewed and examined the patient. Discussed with Dr. Cano and agree with findings and plan as documented in the note. Any exceptions or clarifications are listed here: Pt with improved right sided pleuritic chest pain. Feeling claustrophobic in this room on airborne precautions. Afebrile. Feels very SOB but is not wearing his NC. Spot check shows POx87% on room air at rest. Application of NC at 2L brings POx up to 95% with a couple minutes. Vitals reviewed Anxious, profusely diaphoretic, pleasant, talkative RRR no mgr Lungs with decreased BS right lower and mid lung chou, no wheezes, decreased BS throughout, poor inspiratory effort Abd +BS soft NT ND, no definite HSM Ext no edema Skin: a few scattered pinpoint scabs on legs from previous excoriated bug bites 37 yo male with CAP vs necrotizing PNA with abscess etiology TB vs MRSA, Strep/ Staph, atypical, fungal, autoimmune, less lkely underlying malignancy. -Acute hypoxemic respiratory failure secondary to PNA--> stable, encouraged pt to wear O2 and will switch to OxyMask as he cannot tolerate the NC -continue to follow sputum cx, AFB smears, HIV,antigens, TB test -follow CXR periodically Elevated LFTs--> check liver US but likely secondary to infection and sepsis--> US ok -Toradol prn pleuritic pain, Flutter valve, nebs -Appreciate Pulm and ID consults Documented By: Lucia Arceo
--- NOTE | 2017-06-22 19:51 | DIAGNOSTIC IMAGING REPORT ---
ABDOMINAL ULTRASOUND, RIGHT UPPER QUADRANT HISTORY: elevated LFTs. COMPARISON: None. FINDINGS: Pancreas: Obscured by overlying bowel gas. Liver: Unremarkable. Gallbladder: No gallbladder wall thickening. No gallstones. The gallbladder appears contracted. CBD: 4 mm. Right kidney: No hydronephrosis. Miscellaneous: Small right pleural effusion. IMPRESSION: No significant abnormality identified within the right upper quadrant. Small right pleural effusion is again noted. Electronically signed by: John Fall M.D. 06/22/2017 7:50 PM Dictated Date/Time: 06/22/2017 7:48 PM
[2017-06-23] VITALS (15 sets, daily range): BP systolic 129–146; BP diastolic 72–90; PULSE 94–111; TEMP 36.2–37.5; O2SAT 91–95
[2017-06-23] MEDS: KETOROLAC TROMETHAMINE 30 MG/ML VIAL IV. PRN ×4 (01:21→21:36)
[2017-06-23] MEDS: PIPERACILL/TAZOBAC IV 4.5 GM in DEXTROSE 5% 100ML 100 ML IV SCH ×3 (01:21→18:21)
[2017-06-23] MEDS: ALBUT/IPRATROP 3MG/0.5MG NEB 3 ML VIAL INH SCH ×4 (01:25→19:06)
[2017-06-23] MEDS: VANCOMYCIN INJ 1,750 MG in SODIUM CHLORIDE 0.9% 500ML 500 ML IV SCH ×3 (03:37→22:19)
[2017-06-23 07:49] LABS: HEMATOCRIT 30.4 % (42-52); MEAN CELL VOLUME 86.4 fL (80-100); MEAN CORPUSCULAR HEMOGLOBIN 30.1 pg (25-34); MEAN CORPUSCULAR HGB CONC 34.9 g/dl (32-36); MEAN PLATELET VOLUME 8.4 fL (7.4-10.4); PLATELET COUNT 572 K/uL (130-400); RED BLOOD COUNT 3.52 M/uL (4.7-6.1); WHITE BLOOD COUNT 37.13 K/uL (4.8-10.8)
[2017-06-23] MEDS: GUAIFENESIN 600 MG TABCR PO SCH ×2 (08:15→22:18)
[2017-06-23 08:16] LABS: BUN/CREATININE RATIO 6.2 (10-20); CALCIUM 8.6 mg/dl (8.5-10.1); CREATININE 0.85 mg/dl (0.60-1.40); POTASSIUM 3.6 mmol/L (3.5-5.1)
[2017-06-23] MEDS: ENOXAPARIN 40 MG/0.4 ML SYR SQ SCH (08:16)
[2017-06-23] MEDS: FLUOXETINE HCL 20 MG CAP PO SCH (08:16)
[2017-06-23 08:18] LABS: ALB/GLOB RATIO 0.5 (0.9-2)
[2017-06-23 08:22] LABS: BASO % 0.2 %; BASO ABS # 0.07 K/uL (0-0.2); COMPLETE YES; EOS % 0.5 %; IG% 3.9 %; LYMPH % 5.2 %; LYMPH ABS # 1.94 K/uL (1.2-3.4); MONO % 7.1 %; NEUT % 83.1 %
--- NOTE | 2017-06-23 10:52 | Family Medicine Progress Note ---
Progress Note Date of Service Jun 23, 2017. Subjective Pt evaluation today including: conversation w/ patient, physical exam, chart review, lab review, review of studies Pain: No pain reported this morning Voiding: no voiding problems, no incontinence Patient is resting comfortably in bed this morning with no acute complaints overnight. The patient states his shortness of breath is improving but he is still having difficulty taking deep breaths. He also complains of sweats and requests a fan for the room. When leaning forward he also states he has been having chest wekaness and muscle discomfort from all the coughing and increased work of breathing, but this has been unchanged from prior to admission. He has also been having some diarrhea but states that it is not uncommon for him to have loose bowel movements. He states he has been feeling unwell for a while prior to coming into the hospital and thought his cough was actually improving and went to work on . Constitutional: + sweats, + fatigue, No fever, No chills Respiratory: + cough, + sputum, + shortness of breath, + dyspnea at rest, No wheezing Cardiovascular: + chest pain, No palpitations Abdomen: + diarrhea, No pain, No nausea, No vomiting Musculoskeletal: + muscle pain, No joint pain Medications Current Inpatient Medications Medications (Trade) Dose Ordered Sig/Lanny Route Start Time Stop Time Status Last Admin Dose Admin Ioversol (Optiray 320) 125 ml UD PRN IV 06/21/17 01:45 06/25/17 01:44 Fluoxetine HCl (Prozac Cap) 20 mg DAILY PO 06/21/17 09:00 07/21/17 08:59 06/23/17 08:16 20 MG Acetaminophen (Tylenol Tab) 650 mg Q4H PRN PO 06/21/17 04:30 07/21/17 04:29 Al Hydrox/Mg Hydrox/Simethicone (Maalox Max Susp) 15 ml Q4H PRN PO 06/21/17 04:30 07/21/17 04:29 Magnesium Hydroxide (Milk Of Magnesia Susp) 30 ml Q12H PRN PO 06/21/17 04:30 07/21/17 04:29 Zolpidem Tartrate (Ambien Tab) 5 mg HSZ PRN PO 06/21/17 04:30 07/21/17 04:29 Ondansetron HCl (Zofran Inj) 4 mg Q6H PRN IV 06/21/17 04:30 07/21/17 04:29 Morphine Sulfate (MoRPHine SULFATE INJ) 2 mg Q30M PRN IV 06/21/17 04:30 07/05/17 04:29 06/21/17 12:07 2 MG Polyethylene (Miralax Powder Packet) 17 gm DAILY PRN PO 06/21/17 04:30 07/21/17 04:29 Ketorolac Tromethamine (Toradol Inj) 30 mg Q6H PRN IV. 06/21/17 16:15 06/26/17 16:14 06/23/17 08:17 30 MG Azithromycin 500 mg/Dextrose 255 ml @ 170 mls/hr DAILY@1830 IV 06/21/17 18:30 06/28/17 18:29 06/22/17 16:43 170 MLS/HR Piperacillin Sod/ Tazobactam Sod 4.5 gm/Dextrose 120 ml @ 30 mls/hr Q8H IV 06/22/17 02:00 06/28/17 17:59 06/23/17 09:53 30 MLS/HR Vancomycin HCl 1750 mg/Sodium Chloride 535 ml @ 200 mls/hr Q10H IV 06/22/17 08:00 06/28/17 20:59 06/23/17 03:37 200 MLS/HR Enoxaparin Sodium (Lovenox Inj) 40 mg QAM SQ 06/22/17 09:00 07/22/17 08:59 06/23/17 08:16 40 MG Piperacillin Sod/ Tazobactam Sod (Consult) 1 ea UD PRN N/A 06/21/17 19:00 06/28/17 18:59 Vancomycin HCl (Consult) 1 ea UD PRN N/A 06/21/17 19:00 06/28/17 18:59 Albuterol/ Ipratropium (Duoneb) 3 ml Q6R INH 06/22/17 09:00 07/22/17 08:59 06/23/17 07:03 3 ML Guaifenesin (Mucinex Contr Rel Tab) 1,200 mg Q12 PO 06/22/17 13:45 07/22/17 13:44 06/23/17 08:15 1,200 MG Objective Vital Signs Date Time Temp Pulse Resp B/P (MAP) Pulse Ox O2 Delivery O2 Flow Rate FiO2 06/23/17 08:00 94 Nasal Cannula 2.0 06/23/17 07:56 37.5 111 24 143/79 (100) 94 Nasal Cannula 2.0 06/23/17 07:04 111 16 95 Nasal Cannula 4.0 06/23/17 04:00 95 Nasal Cannula 4.0 06/23/17 03:57 36.6 97 22 146/74 (98) 93 Nasal Cannula 4.0 06/23/17 01:25 111 16 91 Nasal Cannula 3.0 06/23/17 00:00 37.0 105 22 134/83 (100) 95 Nasal Cannula 4.0 06/22/17 23:59 95 Nasal Cannula 4.0 06/22/17 20:00 36.5 92 20 143/86 (105) 95 Nasal Cannula 4.0 06/22/17 20:00 95 Nasal Cannula 4.0 06/22/17 19:16 93 16 Nasal Cannula 3.0 06/22/17 16:00 91 Nasal Cannula 4.0 06/22/17 15:40 37.2 91 22 129/82 (98) 94 Nasal Cannula 4.0 06/22/17 14:06 94 16 86 Room Air 06/22/17 12:00 91 Nasal Cannula 4.0 06/22/17 10:33 36.9 106 20 122/73 (89) 93 Nasal Cannula 4.0 Physical Exam General Appearance: WD/WN, no apparent distress Eyes: normal inspection, sclerae normal Neck: supple, no carotid bruits Respiratory/Chest: chest non-tender, + decreased breath sounds (over right and middle lung chou), + pertinent finding (good air entry, mild increased work of breathing) Cardiovascular: regular rate, rhythm, no edema, no gallop Abdomen: normal bowel sounds, non tender, soft Neurologic/Psychiatric: alert, normal mood/affect, oriented x 3 Laboratory Results Results Past 24 Hours Test 06/23/17 06:59 Range/Units White Blood Count 37.13 4.8-10.8 K/uL Red Blood Count 3.52 4.7-6.1 M/uL Hemoglobin 10.6 14.0-18.0 g/dL Hematocrit 30.4 42-52 % Mean Corpuscular Volume 86.4 80-100 fL Mean Corpuscular Hemoglobin 30.1 25-34 pg Mean Corpuscular Hemoglobin Concent 34.9 32-36 g/dl Platelet Count 572 130-400 K/uL Mean Platelet Volume 8.4 7.4-10.4 fL Neutrophils (%) (Auto) 83.1 % Lymphocytes (%) (Auto) 5.2 % Monocytes (%) (Auto) 7.1 % Eosinophils (%) (Auto) 0.5 % Basophils (%) (Auto) 0.2 % Neutrophils # (Auto) 30.83 1.4-6.5 K/uL Lymphocytes # (Auto) 1.94 1.2-3.4 K/uL Monocytes # (Auto) 2.64 0.11-0.59 K/uL Eosinophils # (Auto) 0.19 0-0.5 K/uL Basophils # (Auto) 0.07 0-0.2 K/uL RDW Standard Deviation 44.0 36.4-46.3 fL RDW Coefficient of Variation 13.8 11.5-14.5 % Immature Granulocyte % (Auto) 3.9 % Immature Granulocyte # (Auto) 1.46 0.00-0.02 K/uL Sodium Level 133 136-145 mmol/L Potassium Level 3.6 3.5-5.1 mmol/L Chloride Level 99 98-107 mmol/L Carbon Dioxide Level 25 21-32 mmol/L Anion Gap 9.0 3-11 mmol/L Blood Urea Nitrogen 5 7-18 mg/dl Creatinine 0.85 0.60-1.40 mg/dl Est Creatinine Clear Calc Drug Dose 135.9 ml/min Estimated GFR () 128.1 Estimated GFR (Non- 110.5 BUN/Creatinine Ratio 6.2 10-20 Random Glucose 117 70-99 mg/dl Calcium Level 8.6 8.5-10.1 mg/dl Total Bilirubin 1.1 0.2-1 mg/dl Aspartate Amino Transf (AST/SGOT) 78 15-37 U/L Alanine Aminotransferase (ALT/SGPT) 139 12-78 U/L Alkaline Phosphatase 189 45-117 U/L Total Protein 7.0 6.4-8.2 gm/dl Albumin 2.2 3.4-5.0 gm/dl Globulin 4.8 2.5-4.0 gm/dl Albumin/Globulin Ratio 0.5 0.9-2 Microbiology Results 06/22/17 Acid Fast Stain, Received Pending 06/22/17 Mycobacterial Culture, Received Pending Assessment and Plan 37 y/o M with history of depression and OCD presented with cough, congestion and general malaise found to have R upper and left lower lobe consolidations with foci of cavitation on CT. Patient states that his shortness of breath has improved and his oxygen requirements are improving. He remains on 2L of oxygen and broad spectrum antibiotics while we are awaiting further cultures and bloodwork. 1) Cavitary Pneumonia - Respiratory status appears to be improving with oxygen therapy and broad spectrum antibiotics - CT on 06/21/17: Multifocal alveolar consolidations within the right upper and lower lobes are present with small right pleural effusion and associated moderate bronchial wall thickening suggesting infectious bronchopneumonia. Additionally, there are two large possibly connecting centrally cavitary consolidations involving the superior segment right lower lobe measuring up to 5.8 cm. - Airborne precautions - Leukocytosis remains stable (WBC of 37.13) - ESR 88, CRP 33.8 - Broad Spectrum Antibiotics Day 2: Vancomycin, Zosyn, and Azithromycin ( Received dose of Clindamycin in the ED( - Sputum culture no growth thus far - Sputum Acid Fast stain x 3 --> Negative x 2 thus far - HIV - Antibodies negative, awaiting RNA results - ANCA - Pending - Legionella Antigen - Pending - Cryptococcal Ab - Pending - Blastomycosis Ab - Pending - Incentive spirometry and flutter valve - Oxygen therapy with goal of maintaining saturation > 92% - Blood Cultures pending 2) Depression/anxiety, OCD - Fluoxetine - Urine opiates + - Recreational cocaine uses 3) Excessive alcohol intake - Reduced intake over last 2 weeks - No s/s of alcoholic withdrawal - Continue to monitor for withdrawal symptoms 4) LFTs Elevated - Infectious process vs alcohol - Will continue to trend 5) DVT prophylaxis - Lovenox 40mg SQ FULL CODE Resident Physician Supervision Note: I interviewed and examined the patient. Discussed with Dr. Hankins and agree with findings and plan as documented in the note. Any exceptions or clarifications are listed here: None Documented By: Naldo Lemos pain less. still sweats. still SOB. reviewed case, CT, ID, pulm input. vitlas noted appearing mildly restless profusely diaphoretic no apparent SOB, however. no pallor or icterus sepsis from cavitary pneumonia -most likely from aspiration events and smoldering subacute infection - but have to rule out worrisome pathogens. doubt R sided endocarditis though since infection appears all R sided, no septic emboli systemically despite PFO, negative blood cultures, reassuring valves on TTE -continue abx and supportive care -does appear course for slow improvement, although may need bronch to aid in dx -otherwise as above Resident Tracking Resident Involvement: Resident Care Provided Care Provided: Adult Hospital Medicine
[2017-06-23] MEDS ORDERED: VANCOMYCIN TROUGH SCH (13:30)
--- NOTE | 2017-06-23 15:42 | Pharmacy Progress Note ---
Pharmacy Abx Dose Progress Nt Date of Service Jun 23, 2017. Pharmacy Dosing Scope The patient is currently receiving the following antimicrobial agents per Pharmacy consult: Vancomycin 1750 mg IV every 10 hours Zosyn 4.5g IV Q8H extended infusion Objective Height (Feet): 5 Height (Inches): 8.00 Weight (Kilograms): 101.300 Vital Signs (Past 12Hrs) Vital Signs Past 12 Hours Date Time Temp Pulse Resp B/P (MAP) Pulse Ox O2 Delivery O2 Flow Rate FiO2 06/23/17 14:38 102 16 92 Nasal Cannula 4.0 06/23/17 12:00 36.2 100 17 129/72 (91) 94 Nasal Cannula 3.0 06/23/17 12:00 94 Nasal Cannula 2.0 06/23/17 08:00 94 Nasal Cannula 2.0 06/23/17 07:56 37.5 111 24 143/79 (100) 94 Nasal Cannula 2.0 06/23/17 07:04 111 16 95 Nasal Cannula 4.0 06/23/17 04:00 95 Nasal Cannula 4.0 06/23/17 03:57 36.6 97 22 146/74 (98) 93 Nasal Cannula 4.0 Lab Results (24Hrs) Laboratory Tests (24 Hours) Item Value Date Time Vancomycin Level Trough 10.0 mcg/ml 06/23/17 1412 Test 06/23/17 06:59 White Blood Count 37.13 K/uL (4.8-10.8) *H Red Blood Count 3.52 M/uL (4.7-6.1) L Hemoglobin 10.6 g/dL (14.0-18.0) L Hematocrit 30.4 % (42-52) L Mean Corpuscular Volume 86.4 fL (80-100) Mean Corpuscular Hemoglobin 30.1 pg (25-34) Mean Corpuscular Hemoglobin Concent 34.9 g/dl (32-36) Platelet Count 572 K/uL (130-400) H Mean Platelet Volume 8.4 fL (7.4-10.4) Neutrophils (%) (Auto) 83.1 % Lymphocytes (%) (Auto) 5.2 % Monocytes (%) (Auto) 7.1 % Eosinophils (%) (Auto) 0.5 % Basophils (%) (Auto) 0.2 % Neutrophils # (Auto) 30.83 K/uL (1.4-6.5) H Lymphocytes # (Auto) 1.94 K/uL (1.2-3.4) Monocytes # (Auto) 2.64 K/uL (0.11-0.59) H Eosinophils # (Auto) 0.19 K/uL (0-0.5) Basophils # (Auto) 0.07 K/uL (0-0.2) Micro Results Date/Time Source Procedure Growth Status 06/21/17 02:35 Blood Blood Culture - Preliminary NO GROWTH TO DATE. Resulted 06/21/17 02:25 Blood Blood Culture - Preliminary NO GROWTH TO DATE. Resulted 06/21/17 01:45 Blood Cryptococcal Antigen - Final Complete 06/22/17 14:20 Sputum Expectorated Sputum Acid Fast Stain Pending Received 06/22/17 14:20 Sputum Expectorated Sputum Mycobacterial Culture Pending Received 06/22/17 07:30 Sputum Expectorated Sputum Acid Fast Stain - Final Resulted 06/22/17 07:30 Sputum Expectorated Sputum Mycobacterial Culture Pending Resulted 06/22/17 00:00 Sputum Expectorated Sputum Acid Fast Stain - Final Resulted 06/22/17 00:00 Sputum Expectorated Sputum Mycobacterial Culture Pending Resulted 06/21/17 04:54 Sputum Expectorated Sputum Acid Fast Stain - Final Resulted 06/21/17 04:54 Sputum Expectorated Sputum Mycobacterial Culture Pending Resulted 06/21/17 04:54 Sputum Expectorated Sputum Gram Stain - Final Complete 06/21/17 04:54 Sputum Expectorated Sputum Sputum Culture - Final HEAVY NORMAL GUNNAR Complete Assessment & Plan Assessment 37 year old male receiving Vancomycin and Zosyn for treatment of cavitary pneumonia Day # 3 of antimicrobial therapy Plan Vancomycin IV * Trough level of 10 mcg/mL is subtherapeutic * Change to 1750 mg IV every 8 hours * Goal trough level for pneumonia : 15 to 20 mcg/mL * Trough level ordered for: 06/25/17 * Dose is 17.5mg/kg, will need to monitor for drug accumulation in obese patient. Piperacillin/tazobactam * Continue 4.5 g IV extended infusion every 8 hours for CrCl greater than 20 mL/ min Pharmacy will continue to follow and will adjust dose/frequency as necessary. Thank you.
[2017-06-23] MEDS: AZITHROMYCIN IV 500 MG in DEXTROSE 5% 250ML 250 ML IV SCH (19:09)
[2017-06-24] VITALS (10 sets, daily range): BP systolic 122–146; BP diastolic 80–92; PULSE 89–108; TEMP 36.3–37; O2SAT 92–98
[2017-06-24] MEDS ORDERED: LORAZEPAM 1 MG TAB PO PRN (01:30)
[2017-06-24] MEDS: ALBUT/IPRATROP 3MG/0.5MG NEB 3 ML VIAL INH SCH ×4 (01:46→19:33)
[2017-06-24] MEDS: PIPERACILL/TAZOBAC IV 4.5 GM in DEXTROSE 5% 100ML 100 ML IV SCH ×3 (02:05→19:39)
[2017-06-24] MEDS: KETOROLAC TROMETHAMINE 30 MG/ML VIAL IV. PRN ×3 (03:39→20:03)
[2017-06-24] MEDS: VANCOMYCIN INJ 1,750 MG in SODIUM CHLORIDE 0.9% 500ML 500 ML IV SCH ×3 (05:38→21:59)
[2017-06-24 07:45] LABS: CREATININE 0.88 mg/dl (0.60-1.40)
[2017-06-24 07:53] LABS: MEAN CELL VOLUME 86.5 fL (80-100); MEAN CORPUSCULAR HEMOGLOBIN 29.7 pg (25-34); MEAN CORPUSCULAR HGB CONC 34.3 g/dl (32-36); MEAN PLATELET VOLUME 8.4 fL (7.4-10.4); PLATELET COUNT 627 K/uL (130-400); RED BLOOD COUNT 3.47 M/uL (4.7-6.1); WHITE BLOOD COUNT 35.51 K/uL (4.8-10.8)
[2017-06-24] MEDS: GUAIFENESIN 600 MG TABCR PO SCH ×2 (08:40→20:40)
[2017-06-24] MEDS: THIAMINE HCL 100 MG TAB PO SCH (08:40)
--- NOTE | 2017-06-24 10:44 | Medical Student: [facility] ---
Med Student Progress Note Date of Service Jun 24, 2017. Subjective Pt evaluation today including: conversation w/ patient, physical exam, chart review, lab review, review of studies Pain: none PO Intake: normal Voiding: no voiding problems Mr. Warner did not sleep well overnight. He reports that his condition is improving. Chest pain has resolved. Still has productive cough that is worse at night. No shortness of breath while on 4L of oxygen. Sweating at night, but states that this is normal for him. Patient reports loose stools over the past 2 days. Denies fever, nausea, and vomiting. Review of Systems Constitutional: + see HPI Eyes: No eye pain ENT: No hearing loss, No sore throat Respiratory: + cough, + sputum Cardiac: No chest pain, No edema Abdomen: + see HPI Musculoskeletal: No joint pain, No muscle pain Neurologic: No numbness/tingling, No vertigo Skin: No rash Objective Vital Signs Date Time Temp Pulse Resp B/P (MAP) Pulse Ox O2 Delivery O2 Flow Rate FiO2 06/24/17 08:00 98 Nasal Cannula 4.0 06/24/17 07:33 97 16 98 Nasal Cannula 4.0 06/24/17 05:48 36.7 89 26 122/80 (94) 94 Nasal Cannula 4.0 06/24/17 01:46 100 16 95 Nasal Cannula 4.0 06/24/17 01:35 36.7 100 32 145/84 (104) 95 Nasal Cannula 4.0 06/23/17 23:15 Nasal Cannula 4.0 06/23/17 23:13 36.8 96 24 135/87 (103) 93 Nasal Cannula 3.0 06/23/17 19:12 107 16 94 Nasal Cannula 4.0 06/23/17 17:12 94 Nasal Cannula 3.0 06/23/17 17:07 36.7 94 20 134/89 (104) 94 Nasal Cannula 3.0 06/23/17 15:55 36.9 99 18 94 2.0 06/23/17 15:18 36.9 99 18 141/90 (107) 94 Nasal Cannula 3.0 06/23/17 14:38 102 16 92 Nasal Cannula 4.0 06/23/17 12:00 36.2 100 17 129/72 (91) 94 Nasal Cannula 3.0 06/23/17 12:00 94 Nasal Cannula 2.0 Physical Exam General Appearance: WD/WN Eyes: bilateral eyes normal inspection, bilateral eyes EOMI ENT: pharynx normal, + nasal congestion Neck: no adenopathy, trachea midline Respiratory/Chest: + crackles (right middle and lower lobes; middle > lower), + rhonchi (right upper lobe) Cardiovascular: regular rate, rhythm, no murmur Abdomen: normal bowel sounds, non tender, soft Extremities: normal range of motion, normal inspection, no pedal edema Neurologic/Psychiatric: alert, normal mood/affect, oriented x 3 Skin: normal color, warm/dry, no rash Lymphatic: no adenopathy Laboratory Results Last 24 Hours Test 06/23/17 14:12 06/24/17 06:38 Vancomycin Level Trough 10.0 mcg/ml White Blood Count 35.51 K/uL Red Blood Count 3.47 M/uL Hemoglobin 10.3 g/dL Hematocrit 30.0 % Mean Corpuscular Volume 86.5 fL Mean Corpuscular Hemoglobin 29.7 pg Mean Corpuscular Hemoglobin Concent 34.3 g/dl RDW Standard Deviation 43.9 fL RDW Coefficient of Variation 13.8 % Platelet Count 627 K/uL Mean Platelet Volume 8.4 fL Creatinine 0.88 mg/dl Est Creatinine Clear Calc Drug Dose 133.7 ml/min Estimated GFR () 126.3 Estimated GFR (Non- 109.0 Total Bilirubin 1.0 mg/dl Direct Bilirubin 0.6 mg/dl Aspartate Amino Transf (AST/SGOT) 46 U/L Alanine Aminotransferase (ALT/SGPT) 115 U/L Alkaline Phosphatase 207 U/L Total Protein 7.0 gm/dl Albumin 2.1 gm/dl Assessment and Plan Assessment and Plan: Assessment: 37 yo male presented with right-sided pleuritic chest pain, progressive shortness of breath, and productive cough. Clinically his condition is improving with less shortness of breath and no chest pain. Currently 98% O2sat on 4L O2. WBC at 35 down from 37. Given patient's reported alcohol use and right-sided lung consolidation, aspiration PNA is likely. But, the cavity lesion will need to be biopsied in order to determine source/infectious agent. Autoimmune etiology on ddx pending CHAVEZ and ANCA. Plan: Multifocal right-sided PNA with cavity lesion --will continue Abx regime now on day 3: Vancomycin, Zosyn, and Azithromycin --will attempt to wean off supplemental O2 --sputum AFB smear neg x 4 sputum AFB culture pending blood culture x 2 showing no growth to date crytocccal Ag neg coccidioides Ab pending HIV neg influenza A and B neg legionella culture and urine Ag pending CHAVEZ pending ANCA pending Depression, anxiety, and OCD --will continue fluoxetine --will consider ativan for increased anxiety Abnormal liver function --AST, ALT, and alk phos still elevated at 46, 115, and 207 --albumin remains low at 2.1 --will continue to monitor; alcohol use on the ddx Continued [facility] stay due to: multiple IV medications needed
[2017-06-24] MEDS: ENOXAPARIN 40 MG/0.4 ML SYR SQ SCH (11:03)
[2017-06-24] MEDS: FLUOXETINE HCL 20 MG CAP PO SCH (11:03)
--- NOTE | 2017-06-24 13:28 | PULMONARY PROGRESS NOTE ---
DATE: 06/24/2017 TIME: 12:45 p.m. SUBJECTIVE: The patient seems very stressed. He admits he feels a little better. However, he is talking about signing out against medical advice. The chest pain he had been having is better. The cough is a little bit less. He has been expectorating into an emesis basin, but most of it appears to be saliva. There is a little yellow mixed in. He states he normally sweats heavily, but he is sweating profusely at the time of this exam. He also seemed very restless. The patient admits to in general drinking too heavily, but he insists he has not had anything to drink in 2 weeks. OBJECTIVE: GENERAL: The patient was very apprehensive. VITAL SIGNS: Temperature was 36.3. He has not had any fevers in more than 24 hours. Yesterday, his maximum temperature was 37.5. Heart rate is 100 per minute. Blood pressure 146/84. Respiratory rate was 24 per minute. HEENT: Pupils were reactive to light. LYMPHATICS: No lymph nodes were palpable. LUNGS: A high-pitched wheeze was heard in the right chest anteriorly. The breath sounds otherwise were diminished on the right. Oxygen saturation was 94% on 2 liter nasal cannula. ABDOMEN: Soft and nontender. EXTREMITIES: Showed no cyanosis, clubbing or edema. LABORATORY DATA: The patient's white count today is 35.51. Initial white count was 19.64. Hemoglobin is 10.3. Platelets are 627,000. The platelets have been elevated since admission. Creatinine today is 0.88. The AST is 46 and ALT is 115. Alkaline phosphatase was 207. Procalcitonin was elevated at 2.02. ANCA levels are pending. Rheumatoid factor was negative. The flu tests were negative. HIV test was negative. AFB smears are negative x4. Routine bacterial culture sputum shows heavy normal scar. Blood cultures are negative. Cryptococcal antigen is negative. IMPRESSIONS: Pneumonia with cavitary changes likely secondary to aspiration pneumonia. Other causes not entirely excluded. The patient is still acutely ill. I explained to him that I feel he is not ready for discharge. He wants out of the hospital very soon. He is threatening signing AMA. I explained to him that he has an overwhelming lung infection and he is not ready to go home yet by standard criteria. He denied that he is in alcohol withdrawal. He absolutely insists that he has not had any alcohol in 2 weeks. I do not know that we can rely upon this. Reportedly, there may have been a history of drug use as well. For now, I would continue with the vancomycin, Zosyn and azithromycin. I explained to the patient that he could have some sedation as he was feeling very anxious about being here. He complained a lot of about food as the reason why he wants to be discharged. I suspect there are other issues as to why he wants to be discharged. I do not believe he requires bronchoscopy at this time, but that situation can be reevaluated on a daily basis.
--- NOTE | 2017-06-24 15:09 | Progress Note ---
Subjective Date of Service: Jun 24, 2017. Subjective events noted, wanting to sign out AMA. no f/c. tolerating abx, cultures negative. afb smear negative x 3. wbc remains elevated. ESR elevated as well. HIV negative. Problem List Medical Problems: (1) Anemia Status: Acute Objective Vital Signs Date Time Temp Pulse Resp B/P (MAP) Pulse Ox O2 Delivery O2 Flow Rate FiO2 06/24/17 14:18 108 18 92 Nasal Cannula 2.0 06/24/17 11:13 36.3 101 18 146/84 (104) 94 Nasal Cannula 2.0 06/24/17 08:00 98 Nasal Cannula 4.0 06/24/17 07:33 97 16 98 Nasal Cannula 4.0 06/24/17 05:48 36.7 89 26 122/80 (94) 94 Nasal Cannula 4.0 06/24/17 01:46 100 16 95 Nasal Cannula 4.0 06/24/17 01:35 36.7 100 32 145/84 (104) 95 Nasal Cannula 4.0 06/23/17 23:15 Nasal Cannula 4.0 06/23/17 23:13 36.8 96 24 135/87 (103) 93 Nasal Cannula 3.0 06/23/17 19:12 107 16 94 Nasal Cannula 4.0 06/23/17 17:12 94 Nasal Cannula 3.0 06/23/17 17:07 36.7 94 20 134/89 (104) 94 Nasal Cannula 3.0 06/23/17 15:55 36.9 99 18 94 2.0 06/23/17 15:18 36.9 99 18 141/90 (107) 94 Nasal Cannula 3.0 Laboratory Results Item Value Date Time Acid Fast Stain - Final Resulted 06/22/17 1420 Sputum Expectorated Sputum Acid Fast Stain - Final Resulted 06/22/17 0730 Sputum Expectorated Sputum Acid Fast Stain - Final Resulted 06/22/17 0000 Sputum Expectorated Sputum Acid Fast Stain - Final Resulted 06/21/17 0454 Sputum Expectorated Sputum Gram Stain - Final Complete 06/21/17 0454 Sputum Expectorated Sputum Blood Culture - Preliminary Resulted 06/21/17 0235 Blood NO GROWTH TO DATE. Blood Culture - Preliminary Resulted 06/21/17 0225 Blood NO GROWTH TO DATE. Last 24 Hours Test 06/24/17 06:38 White Blood Count 35.51 K/uL Red Blood Count 3.47 M/uL Hemoglobin 10.3 g/dL Hematocrit 30.0 % Mean Corpuscular Volume 86.5 fL Mean Corpuscular Hemoglobin 29.7 pg Mean Corpuscular Hemoglobin Concent 34.3 g/dl RDW Standard Deviation 43.9 fL RDW Coefficient of Variation 13.8 % Platelet Count 627 K/uL Mean Platelet Volume 8.4 fL Creatinine 0.88 mg/dl Est Creatinine Clear Calc Drug Dose 133.7 ml/min Estimated GFR () 126.3 Estimated GFR (Non- 109.0 Total Bilirubin 1.0 mg/dl Direct Bilirubin 0.6 mg/dl Aspartate Amino Transf (AST/SGOT) 46 U/L Alanine Aminotransferase (ALT/SGPT) 115 U/L Alkaline Phosphatase 207 U/L Total Protein 7.0 gm/dl Albumin 2.1 gm/dl Assessment and Plan (1) Multifocal pneumonia Assessment & Plan: agree that aspiration could be etiology, echo negative, all cultures negative, afb smear negative. would continue abx. HIV negative. (2) Lung abscess Continued [facility] stay due to: multiple IV medications needed
[2017-06-24] MEDS: AZITHROMYCIN IV 500 MG in DEXTROSE 5% 250ML 250 ML IV SCH (18:05)
--- NOTE | 2017-06-24 21:35 | Family Medicine Progress Note ---
Progress Note Date of Service Jun 24, 2017. Subjective Pt evaluation today including: conversation w/ patient, physical exam, chart review, lab review, review of studies Pain: Patient continues to have chest discomfort with expectorating mucous Voiding: no voiding problems, no incontinence Patient was anxious this morning stating he was getting "stirr crazy" and was expressing a desire to leave the hospital. He states he is still short of breath and has been unable to sleep and adequately rest. He has been coughing up sputum and noticed some blood streaking in the sputum. He states that he is beginning to feel like he is starting to improve though. Constitutional: + sweats, + fatigue, No fever, No chills Respiratory: + cough, + sputum, + wheezing, + shortness of breath, + dyspnea at rest Cardiovascular: + chest pain, No palpitations Abdomen: No pain, No nausea, No vomiting, No diarrhea, No constipation Medications Current Inpatient Medications Medications (Trade) Dose Ordered Sig/Lanny Route Start Time Stop Time Status Last Admin Dose Admin Ioversol (Optiray 320) 125 ml UD PRN IV 06/21/17 01:45 06/25/17 01:44 Fluoxetine HCl (Prozac Cap) 20 mg DAILY PO 06/21/17 09:00 07/21/17 08:59 06/24/17 11:03 20 MG Al Hydrox/Mg Hydrox/Simethicone (Maalox Max Susp) 15 ml Q4H PRN PO 06/21/17 04:30 07/21/17 04:29 Magnesium Hydroxide (Milk Of Magnesia Susp) 30 ml Q12H PRN PO 06/21/17 04:30 07/21/17 04:29 Zolpidem Tartrate (Ambien Tab) 5 mg HSZ PRN PO 06/21/17 04:30 07/21/17 04:29 Ondansetron HCl (Zofran Inj) 4 mg Q6H PRN IV 06/21/17 04:30 07/21/17 04:29 Morphine Sulfate (MoRPHine SULFATE INJ) 2 mg Q30M PRN IV 06/21/17 04:30 07/05/17 04:29 06/21/17 12:07 2 MG Polyethylene (Miralax Powder Packet) 17 gm DAILY PRN PO 06/21/17 04:30 07/21/17 04:29 Ketorolac Tromethamine (Toradol Inj) 30 mg Q6H PRN IV. 06/21/17 16:15 06/26/17 16:14 06/24/17 20:03 30 MG Azithromycin 500 mg/Dextrose 255 ml @ 170 mls/hr DAILY@1830 IV 06/21/17 18:30 06/28/17 18:29 06/24/17 18:05 170 MLS/HR Piperacillin Sod/ Tazobactam Sod 4.5 gm/Dextrose 120 ml @ 30 mls/hr Q8H IV 06/22/17 02:00 06/28/17 17:59 06/24/17 19:39 30 MLS/HR Enoxaparin Sodium (Lovenox Inj) 40 mg QAM SQ 06/22/17 09:00 07/22/17 08:59 06/24/17 11:03 40 MG Piperacillin Sod/ Tazobactam Sod (Consult) 1 ea UD PRN N/A 06/21/17 19:00 06/28/17 18:59 Vancomycin HCl (Consult) 1 ea UD PRN N/A 06/21/17 19:00 06/28/17 18:59 Albuterol/ Ipratropium (Duoneb) 3 ml Q6R INH 06/22/17 09:00 07/22/17 08:59 06/24/17 19:33 3 ML Guaifenesin (Mucinex Contr Rel Tab) 1,200 mg Q12 PO 06/22/17 13:45 07/22/17 13:44 06/24/17 20:40 1,200 MG Vancomycin HCl 1750 mg/Sodium Chloride 535 ml @ 200 mls/hr Q8@0600,1400,2200 IV 06/23/17 22:00 06/30/17 21:59 06/24/17 14:27 200 MLS/HR Thiamine HCl (Vitamin B-1 Tab) 100 mg QAM PO 06/24/17 08:00 07/24/17 07:59 06/24/17 08:40 100 MG Folic Acid (Folvite Tab) 1 mg QAM PO 06/24/17 08:00 07/24/17 07:59 06/24/17 08:41 1 MG Lorazepam (Ativan Tab) 1 mg ONE PRN PO 06/24/17 01:30 Objective Vital Signs Date Time Temp Pulse Resp B/P (MAP) Pulse Ox O2 Delivery O2 Flow Rate FiO2 06/24/17 19:34 98 20 94 Nasal Cannula 2.0 06/24/17 16:10 Nasal Cannula 2.0 06/24/17 16:03 37.0 96 22 143/92 (109) 92 Room Air 06/24/17 14:18 108 18 92 Nasal Cannula 2.0 06/24/17 11:13 36.3 101 18 146/84 (104) 94 Nasal Cannula 2.0 06/24/17 08:00 98 Nasal Cannula 4.0 06/24/17 07:33 97 16 98 Nasal Cannula 4.0 06/24/17 05:48 36.7 89 26 122/80 (94) 94 Nasal Cannula 4.0 06/24/17 01:46 100 16 95 Nasal Cannula 4.0 06/24/17 01:35 36.7 100 32 145/84 (104) 95 Nasal Cannula 4.0 06/23/17 23:15 Nasal Cannula 4.0 06/23/17 23:13 36.8 96 24 135/87 (103) 93 Nasal Cannula 3.0 Physical Exam General Appearance: WD/WN, no apparent distress Eyes: normal inspection, sclerae normal Respiratory/Chest: chest non-tender, + decreased breath sounds (Over right middle and lower lung regions), + accessory muscle use Cardiovascular: regular rate, rhythm, no edema, no gallop Abdomen: normal bowel sounds, non tender, soft Extremities: non-tender, normal inspection, no calf tenderness Neurologic/Psychiatric: alert, normal mood/affect, oriented x 3 Laboratory Results Results Past 24 Hours Test 06/24/17 06:38 Range/Units White Blood Count 35.51 4.8-10.8 K/uL Red Blood Count 3.47 4.7-6.1 M/uL Hemoglobin 10.3 14.0-18.0 g/dL Hematocrit 30.0 42-52 % Mean Corpuscular Volume 86.5 80-100 fL Mean Corpuscular Hemoglobin 29.7 25-34 pg Mean Corpuscular Hemoglobin Concent 34.3 32-36 g/dl RDW Standard Deviation 43.9 36.4-46.3 fL RDW Coefficient of Variation 13.8 11.5-14.5 % Platelet Count 627 130-400 K/uL Mean Platelet Volume 8.4 7.4-10.4 fL Creatinine 0.88 0.60-1.40 mg/dl Est Creatinine Clear Calc Drug Dose 133.7 ml/min Estimated GFR () 126.3 Estimated GFR (Non- 109.0 Total Bilirubin 1.0 0.2-1 mg/dl Direct Bilirubin 0.6 0-0.2 mg/dl Aspartate Amino Transf (AST/SGOT) 46 15-37 U/L Alanine Aminotransferase (ALT/SGPT) 115 12-78 U/L Alkaline Phosphatase 207 45-117 U/L Total Protein 7.0 6.4-8.2 gm/dl Albumin 2.1 3.4-5.0 gm/dl Microbiology Results 06/24/17 MRSA DNA Surveillance Screen - Final, Complete Specimen Negative for MRSA by DNA Probe Assessment and Plan 37 y/o M with history of depression and OCD presented with cough, congestion and general malaise found to have R upper and left lower lobe consolidations with foci of cavitation on CT. Patient states that his shortness of breath has improved and his oxygen requirements are improving. He remains on 2L of oxygen and broad spectrum antibiotics while we are awaiting further cultures and bloodwork. AFB ultures negative x 3 so removed from isolation 1) Cavitary Pneumonia - Respiratory status appears to be improving with oxygen therapy, now only requiring 2L of oxygen, and broad spectrum antibiotics - CT on 06/21/17: Multifocal alveolar consolidations within the right upper and lower lobes are present with small right pleural effusion and associated moderate bronchial wall thickening suggesting infectious bronchopneumonia. Additionally, there are two large possibly connecting centrally cavitary consolidations involving the superior segment right lower lobe measuring up to 5.8 cm. - Airborne precautions have been removed after negative AFB cultures x 3 - Pulm Consult - No need to be bronched at this time, continue broad spectrum antibiotics - Leukocytosis remains improving (WBC of 37.13 --> 35.51) - Broad Spectrum Antibiotics Day 3: Vancomycin, Zosyn, and Azithromycin ( Received dose of Clindamycin in the ED( - Sputum culture no growth thus far - HIV - Antibodies negative, awaiting RNA results - ANCA - Pending - Legionella Antigen - Pending - Cryptococcal Ab - Pending - Blastomycosis Ab - Pending - Incentive spirometry and flutter valve - Oxygen therapy with goal of maintaining saturation > 92% - Blood Cultures pending 2) Depression/anxiety, OCD - Fluoxetine - Urine opiates + - Recreational cocaine uses 3) Excessive alcohol intake - Reduced intake over last 2 weeks - No s/s of alcoholic withdrawal - Continue to monitor for withdrawal symptoms 4) LFTs Elevated - AST and ALT improving - Infectious process vs alcohol - Will continue to trend 5) DVT prophylaxis - Lovenox 40mg SQ 6) Code Status - Full Resuscitation Resident Physician Supervision Note: I interviewed and examined the patient. Discussed with Dr. Hankins and agree with findings and plan as documented in the note. Any exceptions or clarifications are listed here: None Documented By: Naldo Lemos feeling better breathing better less sweats less pain heliolas noted nad breathing unlabored no pallor or icterus pneumonia/sepsis/acute hypoxic respiratory failure from most likely aspiration pneumonia -improving -continue IV abx and supportive care Resident Tracking Resident Involvement: Resident Care Provided Care Provided: Adult Hospital Medicine
[2017-06-25] VITALS (7 sets, daily range): BP systolic 143–163; BP diastolic 91–92; PULSE 91–108; TEMP 36.9–37.3; O2SAT 91–94
[2017-06-25] MEDS: ALBUT/IPRATROP 3MG/0.5MG NEB 3 ML VIAL INH SCH ×3 (02:00→14:16)
[2017-06-25] MEDS: KETOROLAC TROMETHAMINE 30 MG/ML VIAL IV. PRN ×2 (02:01→10:00)
[2017-06-25] MEDS: PIPERACILL/TAZOBAC IV 4.5 GM in DEXTROSE 5% 100ML 100 ML IV SCH ×2 (02:02→11:28)
[2017-06-25] MEDS ORDERED: VANCOMYCIN TROUGH SCH (05:30)
[2017-06-25] MEDS: VANCOMYCIN INJ 1,750 MG in SODIUM CHLORIDE 0.9% 500ML 500 ML IV SCH (06:12)
[2017-06-25] MEDS: GUAIFENESIN 600 MG TABCR PO SCH (08:53)
[2017-06-25] MEDS: ENOXAPARIN 40 MG/0.4 ML SYR SQ SCH (08:53)
[2017-06-25] MEDS: THIAMINE HCL 100 MG TAB PO SCH (08:54)
[2017-06-25] MEDS: FLUOXETINE HCL 20 MG CAP PO SCH (08:54)
--- NOTE | 2017-06-25 09:20 | Pharmacy Progress Note ---
Pharmacy Abx Dose Short Note Date of Service Jun 25, 2017. Assessment & Plan Assessment 37 year old male receiving vancomycin/zosyn/azithromycin for treatment of pneumonia Day # 5 of antimicrobial therapy Plan Vancomycin * Trough level of 23.5 is supratherapeutic, drawn correctly * Change to 1250 mg q8H * Goal trough level for pneumonia 15-20 mcg * Trough level ordered for06/26 @ 1530 Pharmacy will continue to follow and will adjust dose/frequency as necessary. Thank you.
--- NOTE | 2017-06-25 13:39 | PROGRESS NOTE ---
DATE: 06/25/2017 DATE: 06/25/2017 PROBLEM LIST: Includes pneumonia with cavitary changes most likely secondary to aspiration pneumonia. SUBJECTIVE: The patient reports that he is feeling much better today. He has been up ambulating in the gomez. He is not getting out of breath with ambulating in the gomez. His cough is improving. He still is getting some mucus up. The mucus has been white to clear. He is not having any coughing paroxysms that he had previously. He has not noticed any wheezing, any chest heaviness or tightness. He states that he has been doing incentive spirometer and has been getting the meter basically up to the top. He has not noted any fever or chills. He continues to have sweats. He states that this is typical for him. He states that he still is having difficulty resting and has been trying to sit in a chair to sleep. He states that he feels better than he did yesterday, does not feel as anxious or upset as yesterday however he voices that he still would like to get out of here as soon as possible. He denies any other difficulties at this time. He still has some chest discomfort with coughing, which he is receiving medication for. OBJECTIVE: GENERAL: The patient is a 37-year-old male sitting at bedside eating his lunch, much less anxious than yesterday. Actually is very conversant today. No dyspnea with conversation. I actually did watch him ambulate out in the gomez prior to going in with him and he did not have any evidence of dyspnea with that. He is on room air at this time. He is interactive and cooperative. VITAL SIGNS: Temp 36.9, pulse 108, respirations 16, blood pressure 163/92, pulse ox 92% on room air. HEAD, EYES, EARS, NOSE, AND THROAT: Normocephalic, atraumatic. Pupils equal, round and reactive to light and accommodation. Extraocular movements are intact. [place] moist gingival and buccal mucosa. NECK: Short, thick, supple. No mass. No adenopathy. No bruit. CHEST: Improved breath sounds from yesterday. There is no wheeze appreciated. No rale or rhonchi noted. Still a little bit decreased in the posterior right mid to lower area but improved from previous. CARDIOVASCULAR: Regular rate and rhythm. No murmurs, gallops or rubs. ABDOMEN: Bowel sounds are present. Abdomen soft, nontender. No guarding, rigidity or organomegaly. EXTREMITIES: No erythema or edema. NEUROLOGIC: Cranial nerves II through XII are intact. No focal deficits noted. LABORATORY DATA: No new lab data today. No new radiologic data today. IMPRESSION: This is a 37-year-old male with a pneumonia with cavitation, which most likely is secondary to aspiration following an episode of heavy drinking. Patient at this time clinically is significantly improved. He is off oxygen on room air and saturating in the low 90s. He has been up ambulating without difficulty. At this point, I think that he is doing fairly well. At this point I think we can consider transitioning over to oral antibiotics but will leave that up to infectious disease. I think that we will need to do follow-up imaging in about 4-6 weeks, most likely with a CAT scan as his chest x-ray did not really show much. The patient is agreeable at least at this time to come into the office for followup. Will discuss with hospitalist service about the possibility of getting him discharged in the next 24-48 hours if they feel it is appropriate, some of it will depend on white count which was not checked today, is to be checked tomorrow and did relay this to the patient. We will continue to follow through hospitalization.
--- NOTE | 2017-06-25 14:46 | Progress Note ---
Subjective Date of Service: Jun 25, 2017. Subjective pt remains on broad spectrum abx, afebrile. tolerating well. to be d/c today or tomorrow. All micro remains negative. No plans for bronch at this time. pt is to follow up post d/c for repeat imaging in 4-6 weeks. no overnight events. Problem List Medical Problems: (1) Anemia Status: Acute Objective Vital Signs Date Time Temp Pulse Resp B/P (MAP) Pulse Ox O2 Delivery O2 Flow Rate FiO2 06/25/17 14:18 98 20 92 Room Air 06/25/17 08:00 92 Room Air 06/25/17 07:41 36.9 108 16 163/92 (115) 92 Room Air 06/25/17 07:27 108 20 91 Room Air 06/25/17 02:00 98 20 92 Room Air 06/25/17 00:00 Room Air 06/24/17 23:51 36.6 99 22 135/81 (99) 92 Room Air 06/24/17 19:34 98 20 94 Nasal Cannula 2.0 06/24/17 16:10 Nasal Cannula 2.0 06/24/17 16:03 37.0 96 22 143/92 (109) 92 Room Air Laboratory Results Item Value Date Time Acid Fast Stain - Final Resulted 06/22/17 1420 Sputum Expectorated Sputum Acid Fast Stain - Final Resulted 06/22/17 0730 Sputum Expectorated Sputum Acid Fast Stain - Final Resulted 06/22/17 0000 Sputum Expectorated Sputum Acid Fast Stain - Final Resulted 06/21/17 0454 Sputum Expectorated Sputum Gram Stain - Final Complete 06/21/17 0454 Sputum Expectorated Sputum Blood Culture - Preliminary Resulted 06/21/17 0235 Blood NO GROWTH TO DATE. Blood Culture - Preliminary Resulted 06/21/17 0225 Blood NO GROWTH TO DATE. Last 24 Hours Test 06/25/17 05:34 Vancomycin Level Trough 23.5 mcg/ml Assessment and Plan (1) Multifocal pneumonia Assessment & Plan: ? aspiration. afb, fungal, routine cultures negative, hiv negative. would suggest transition to po augmentin x 3 weeks with follow up scan as previously planned. ok for d/c from ID standpoint when otherwise stable. (2) Lung abscess Continued [facility] stay due to: multiple IV medications needed
[2017-06-25] MEDS ORDERED: AMOX1TAB43 PO (15:23)
[2017-06-25] MEDS ORDERED: AMOXICILLIN/CLAVULANATE TAB 875 MG TAB PO ONE (15:30)
[2017-06-25] MEDS ORDERED: VANCOMYCIN INJ 1,250 MG in SODIUM CHLORIDE 0.9% 250ML 250 ML IV SCH (16:00)
[2017-06-25] MEDS ORDERED: AMOXICILLIN/CLAVULANATE TAB 875 MG TAB PO SCH (17:00)
[2017-06-25] MEDS ORDERED: VNTHFA/IN INH (17:28)
--- NOTE | 2017-06-25 17:39 | Discharge Instructions ---
Discharge Instructions Date of Service Jun 25, 2017. Admission Reason for Admission: Lung Abscess, Multifocal Pneumonia Discharge Discharge Diagnosis / Problem: Pneumonia Discharge Goals Goal(s): Decrease discomfort, Therapeutic intervention Activity Recommendations Activity Limitations: as noted below Lifting Limitations: until after follow-up appointment Exercise/Sports Limitations: until after follow-up appointment May Resume Sexual Activity: after follow-up appointment Shower/Bathe: no limitations Driving or Machine Use: no limitations . Instructions / Follow-Up Instructions / Follow-Up You were seen in the hospital for shortness of breath and found to have a pneumonia. You were treated with IV antibiotics for 4 days in addition to oxygen therapy. Your breathing improved with treatment but on discharge you are still requiring oxygen with activity and will require a prolonged course of antibiotics. Instructions - Take Augmentin 875mg 1 tablet by mouth twice daily for the next 3 weeks - Take the Albuterol inhaler 1-2 puffs as needed for shortness of breath. Do not take it more frequently than every 4 hours. - Continue your previous dose of Prozac - Follow up with Dr. Hankins next in clinic. Our keycase assembler will contact you with an appointment in the next 1-2 days. If she does not contact you please call our office to determine the time of your appointment - Wear the oxygen at 2L continuously to ensure your are getting enough oxygen - Do not return to work until following up with a physician to ensure that you are physically ready - If you have any worsening symptoms including fever, worsening shortness of breath, confusion, headache, abdominal pain, coughing up blood, or any other concerning symptoms please be evaluated by a doctor or return to the emergency department immediately. Current Hospital Diet Patient's current hospital diet: Regular Diet Discharge Diet Recommended Diet: Regular Diet Pending Studies Studies pending at discharge: no Medical Emergencies . Who to Call and When: Medical Emergencies: If at any time you feel your situation is an emergency, please call 911 immediately. . Non-Emergent Contact Non-Emergency issues call your: Primary Care Provider . . "Provider Documentation" section prepared by Beny Hankins. . VTE Core Measure Inpt VTE Proph given/why not?: Unfractionated heparin SQ
[2017-06-26 12:12] LABS: LEGIONELLA ANTIGEN NOT DETECTED (NOT DETECTED)
[2017-06-26 15:23] LABS: COD UR NEGATIVE NG/ML (CUTOFF=50); HYDROCOD UR NEGATIVE NG/ML (CUTOFF=50); HYDROMOR UR NEGATIVE NG/ML (CUTOFF=50); MORPHINE UR 932 NG/ML (CUTOFF=50); NORHYDROCODONE CONF UR NEGATIVE NG/ML (CUTOFF=50); OXYMORPH UR NEGATIVE NG/ML (CUTOFF=50)
[2017-06-26] MEDS ORDERED: VANCOMYCIN TROUGH ONE (15:30)
[2017-06-26 15:34] LABS: QUANTIF TB AG-NIL <0.00 IU/ML; QUANTIFERON NIL 0.24 IU/ML
--- NOTE | 2017-06-26 21:30 | Discharge Summary ---
Discharge Summary Date of Service Jun 26, 2017. (Beny Hankins MD) Discharge Summary Admission Date: Jun 21, 2017 at 04:36 Discharge Date: Jun 25, 2017 Discharge Disposition: Home Principal Diagnosis: Aspiration Pneumonia Problems/Secondary Diagnoses: excessive alcohol intake (Beny Hankins MD) Medication Reconciliation New Medications: Albuterol Hfa (Ventolin Hfa) 200 Puffs/03295 Mcg Aers 2-4 PUFFS INH Q6H, #1 INHALER Amoxicillin & Pot Clavulanate (Amoxicillin/Clavulanate P) 1 Tab Tab 875 MG PO BIDM for 21 Days, #42 TAB Continued Medications: Fluoxetine (Prozac) 20 Mg Cap 20 MG PO DAILY Discharge Exam Review of Systems: Constitutional: No fever, No chills, No fatigue Respiratory: + cough, + sputum, + wheezing, + dyspnea on exertion, No shortness of breath Cardiovascular: No chest pain, No palpitations Abdomen: No pain, No nausea, No vomiting, No diarrhea, No constipation Physical Exam: General Appearance: WD/WN, no apparent distress Eyes: normal inspection, sclerae normal Respiratory/Chest: chest non-tender, + decreased breath sounds (over right middle and lower lobes), + crackles Cardiovascular: regular rate, rhythm, no edema, no gallop Abdomen / GI: normal bowel sounds, non tender, soft (Beny Hankins MD) Hospital Course The patient is a 37 year old male with a history of depression and OCD that presented with cough, congestion and general malaise and was found to have R upper and left lower lobe consolidations with foci of cavitation on CT. The patient was initially started on broad spectrum antibiotic and placed on isolation to test for TB due to the cavitary finding. The patient was initially requiring 4L of oxygen and developed occasional low grade fevers. The patient was also found to be very anxious during his hospital admission although refused any Ativan or medications to help deal with the anxiety. The patient was evaluated by Pulmonology who agreed to continue with the broad spectrum antibiotics while awaiting blood and sputum cultures. All cultures were negative and the patients oxygen requirement subsequently improved as well. After 3 days of antibiotic treatment the patient was saturating well at room air but on his 2 step desaturated and was found to need 2L of oxygen with activity. Based on his improvement the patient was found to be healthy enough to be discharged and continue treatment as an outpatient. Infectious disease prescribed 3 weeks of Augmentin and the patient was discharged with 2L home oxygen and plan to follow with Dr. Hankins in 1 week. Cavitary Pneumonia - Respiratory status appears to be improving with oxygen therapy, now only requiring 2L of oxygen, and broad spectrum antibiotics - CT on 06/21/17: Multifocal alveolar consolidations within the right upper and lower lobes are present with small right pleural effusion and associated moderate bronchial wall thickening suggesting infectious bronchopneumonia. Additionally, there are two large possibly connecting centrally cavitary consolidations involving the superior segment right lower lobe measuring up to 5.8 cm. - Airborne precautions have been removed after negative AFB cultures x 3 - Pulm Consult - No need to be bronched at this time, continue broad spectrum antibiotics - Leukocytosis remains improving (WBC of 37.13 --> 35.51) - Broad Spectrum Antibiotics Day 3: Vancomycin, Zosyn, and Azithromycin ( Received dose of Clindamycin in the ED( - Sputum culture no growth thus far - HIV - Antibodies negative, awaiting RNA results - ANCA - Pending - Legionella Antigen - Pending - Cryptococcal Ab - Pending - Blastomycosis Ab - Pending - Incentive spirometry and flutter valve - Oxygen therapy with goal of maintaining saturation > 92% - Blood Cultures pending Total Time Spent: Greater than 30 minutes This includes examination of the patient, discharge planning, medication reconciliation, and communication with other providers. (Beny Hankins MD) Resident Physician Supervision Note: I interviewed and examined the patient. Discussed with Dr. Hankins and agree with findings and plan as documented in the note. Any exceptions or clarifications are listed here: None Documented By: Naldo Lemos feeling better breathing better still needs O2 but understands and wants to go home w O2 vitals noted breathing unlabored no pallor diaphorseis or icterus pneumonia w abscess -most likely due to aspiration -home on PO abx, close f/u acute hypoxic respiratory failure -due to above, still needing O2 but stable for home on O2 (Naldo Lemos, D.O.) Discharge Instructions Please refer to the electronic Patient Visit Report (Discharge Instructions) for additional information. (Beny Hankins MD) Additional Copies To Beny Hankins MD Resident Tracking Resident Involvement: Resident Care Provided Care Provided: Adult [facility] Medicine (Beny Hankins MD)
--- NOTE | 2017-06-27 12:53 | EDITING REQUIRED CODING QUERY ---
SEPSIS To promote full compliance with coding requirements relating to patient care, physician participation is requested in all cases of reimbursement spec uncertainty. Please assist us with the question(s) below: In responding to this query, please exercise your independent professional judgment. The fact that a question is asked does not imply that any particular answer is desired or expected. We appreciate your clarification on this issue. Coding Question: [place] sepsis was documented on a few progress notes but not on the discharge summary, please clarify below to the best of your knowledge. Thanks for your help! () Sepsis () Present on Admission () Not present on admission () Unable to clinically determine () Other, patient has:
== END 2017-06-25 18:46 | disposition home or self-care (01) | DRG 177 ==
LOC: C.EDB 00:27 → UNDOADMIN 04:36 → C.2T 04:36 → ENRESERV 05:15 → C.MS4W 06-23 16:41
PROVIDERS: ADMIT Internal Medicine; ATTEND Family Medicine
DX: J69.0 Pneumonitis due to inhalation of food and vomit (principal); J96.01 Acute respiratory failure with hypoxia; J85.1 Abscess of lung with pneumonia; F42.9 Obsessive-compulsive disorder, unspecified; F41.9 Anxiety disorder, unspecified; F32.9 Major depressive disorder, single episode, unspecified; J98.4 Other disorders of lung; F10.10 Alcohol abuse, uncomplicated; Z79.899 Other long term (current) drug therapy

== ENCOUNTER → 2017-07-17 | Outpatient (CLI) | payer OTHER ==
[~2017-07-17] MED LIST changes: +AMOX1TAB43 PO; -AZITTAB PO; +FLUO20CA35 PO; +VNTHFA/IN INH; -[UNRECOGNIZED DRUG - CODE] PO
--- NOTE | 2017-07-17 09:33 | DIAGNOSTIC IMAGING REPORT ---
CHEST 2 VIEWS ROUTINE CLINICAL HISTORY: 37 years-old Male presenting with PNX, aspiration pneumonia. TECHNIQUE: PA and lateral views of the chest were obtained. COMPARISON: 06/21/2017. FINDINGS: Cardiomediastinal silhouette normal. Persistent elevation of the right hemidiaphragm. Persistent opacity in the right mid lung and right lung base. The presence of gas within this is best appreciated on prior CT, not evident radiographically on today's examination. A loculated small right pleural effusion is present. No pneumothorax. Osseous structures normal. Upper abdomen normal. IMPRESSION: 1. Persistent right mid and basilar opacities with small loculated right pleural effusion. This is stable to slightly increased from prior chest x-ray. No pneumothorax. Electronically signed by: Morgan Morocho M.D. 07/17/2017 9:31 AM Dictated Date/Time: 07/17/2017 9:26 AM
== END | disposition home or self-care (01) ==
LOC: C.RAD1850 09:05
PROVIDERS: ATTEND Student in an Organized Health Care Education/Training Program
DX: J69.0 Pneumonitis due to inhalation of food and vomit (principal); J90 Pleural effusion, not elsewhere classified

== ENCOUNTER → 2017-08-01 | Outpatient (CLI) | payer OTHER ==
[~2017-08-01] MED LIST changes: +OPTIRAY 320 IV PRN
--- NOTE | 2017-08-01 16:11 | DIAGNOSTIC IMAGING REPORT ---
CT OF THE CHEST WITH IV CONTRAST CLINICAL HISTORY: Cough. Pneumonia. COMPARISON STUDY: Chest CT June 21, 2017 and chest radiograph July 17, 2017. TECHNIQUE: Following IV administration of 93 mL of Optiray-320, helical axial images of the chest were obtained. Sagittal and coronal reconstructions were viewed as well as maximal intensity projections on an independent 3-D workstation. A dose lowering technique was utilized adhering to the principles of ALARA. CT DOSE: 621.94 mGy.cm FINDINGS: Mild subcarinal and right hilar adenopathy has improved since exam of June 21, 2017. The size of the heart is at the upper limits of normal. There is no pericardial effusion. A small right pleural effusion with pleural thickening and enhancement is noted. This has decreased in size since chest radiographs of July 17, 2017. A small residual cavity within the posterior segment of the right upper lobe is noted. The airspace opacity shown exam June 21, 2017 has nearly completely resolved. Subpleural opacities within the lungs favor scarring or atelectasis. Marked improvement since prior CT is noted. Central airways are patent. Bony thorax and upper abdomen are unremarkable. No new sites of consolidation are present. IMPRESSION: 1. Marked improvement since exam of June 21, 2017 with near complete resolution of the right lung pneumonia with a small residual cavity and minimal adjacent airspace opacity. 2. Mild right hilar and subcarinal lymphadenopathy which has improved since prior exam. This is likely reactive. 3. Small right pleural effusion with pleural thickening and enhancement. This effusion has decreased in size since exam of July 17, 2017 and suggests a resolving parapneumonic effusion. Electronically signed by: Miguelangel Ace M.D. 08/01/2017 4:10 PM Dictated Date/Time: 08/01/2017 3:38 PM
== END | disposition home or self-care (01) ==
LOC: C.CTS 14:59
PROVIDERS: ATTEND Internal Medicine Pulmonary Disease
DX: R05 Cough (principal); J18.9 Pneumonia, unspecified organism; R59.0 Localized enlarged lymph nodes; J90 Pleural effusion, not elsewhere classified

== ENCOUNTER → 2017-08-01 | Outpatient (CLI) | payer OTHER ==
[~2017-08-01] MED LIST changes: -OPTIRAY 320 IV PRN
[2017-08-01 15:33] LABS: BASO ABS # 0.08 K/uL (0-0.2); COMPLETE YES; EOS % 4.6 %; HEMATOCRIT 38.2 % (42-52); IG% 0.4 %; LYMPH % 37.8 %; LYMPH ABS # 3.01 K/uL (1.2-3.4); MEAN CORPUSCULAR HEMOGLOBIN 28.8 pg (25-34); MEAN CORPUSCULAR HGB CONC 34.3 g/dl (32-36); MEAN PLATELET VOLUME 9.1 fL (7.4-10.4); MONO % 9.3 %; NEUT % 46.9 %; PLATELET COUNT 368 K/uL (130-400); RED BLOOD COUNT 4.55 M/uL (4.7-6.1); WHITE BLOOD COUNT 7.96 K/uL (4.8-10.8)
[2017-08-01 15:43] LABS: PARTIAL THROMBOPLASTIN RATIO 1.2; PROTHROMBIN TIME (PATIENT) 10.7 SECONDS (9.0-12.0)
[2017-08-01 15:52] LABS: ALT/SGPT 36 U/L (12-78); AST/SGOT 25 U/L (15-37); BLOOD UREA NITROGEN 14 mg/dl (7-18); BUN/CREATININE RATIO 15.9 (10-20); CALCIUM 9.4 mg/dl (8.5-10.1); CARBON DIOXIDE 27 mmol/L (21-32); CHLORIDE 102 mmol/L (98-107); CREATININE 0.86 mg/dl (0.60-1.40); GLUCOSE 85 mg/dl (70-99); POTASSIUM 3.8 mmol/L (3.5-5.1); SODIUM 138 mmol/L (136-145)
[2017-08-01 15:54] LABS: ALB/GLOB RATIO 0.9 (0.9-2); ALKALINE PHOSPHATASE 70 U/L (45-117)
[2017-08-04 15:20] LABS: QUANTIF TB AG-NIL 0.01 IU/ML; QUANTIFERON NIL 0.02 IU/ML
== END | disposition home or self-care (01) ==
LOC: C.LAB1850 14:06
PROVIDERS: ATTEND Internal Medicine Pulmonary Disease
DX: R63.8 Other symptoms and signs concerning food and fluid intake (principal); J18.9 Pneumonia, unspecified organism; R05 Cough

== ENCOUNTER → 2017-10-21 | Outpatient (CLI) | payer OTHER ==
--- NOTE | 2017-10-21 09:17 | DIAGNOSTIC IMAGING REPORT ---
CT OF THE CHEST WITHOUT IV CONTRAST CLINICAL HISTORY: Cough. Cavitary lesion of lung. COMPARISON STUDY: Chest CT June 21, 2017 and August 01, 2017. CT DOSE: 357.12 mGy.cm TECHNIQUE: Axial images of the chest were obtained without IV contrast. Images were reviewed in the axial, sagittal, and coronal planes. IV contrast was not administered for this examination. A dose lowering technique was utilized adhering to the principles of ALARA. FINDINGS: There has been continued improvement since exam of August 01, 2017. The previously described cavity within the posterior segment of the right upper lobe has nearly completely resolved. The cavitary component has resolved. Residual airspace opacity suggests scarring or atelectasis. No new sites of consolidation are present. Right lower lobe airspace opacity has nearly completely resolved. A right pleural effusion has decreased in size. There is a trace residual right pleural effusion. There is no pneumothorax. Elevation of the right hemidiaphragm is unchanged. Mediastinal and right hilar lymphadenopathy shown on CT of August 01, 2017 has resolved. The size of the heart is normal. A few small low suspicion reported nodules are noted, including a 5 mm subpleural left lower lobe nodule shown image 237 of 286, a 5 mm right middle lobe nodule shown image 104 and two 5 mm right upper lobe nodules shown on images 42 and 38. IMPRESSION: 1. Continued improvement in right lung airspace opacity since study of August 01, 2017. Minimal residual opacity reflects atelectasis or scarring. Resolution of the cavitary component within the right upper lobe. The findings favor a resolving infectious process. 2. Continued decrease in size of a trace right pleural effusion with resolution of hilar and mediastinal lymphadenopathy. 3. Several low suspicion pulmonary nodules. A follow-up chest CT in 6 months to ensure stability is recommended. Electronically signed by: Miguelangel Ace M.D. 10/21/2017 9:16 AM Dictated Date/Time: 10/21/2017 9:04 AM
== END | disposition home or self-care (01) ==
LOC: C.CTS 08:53
PROVIDERS: ATTEND Internal Medicine Pulmonary Disease
DX: J98.4 Other disorders of lung (principal); R05 Cough; R91.1 Solitary pulmonary nodule; R91.8 Other nonspecific abnormal finding of lung field